=== PATIENT | female | born 1970 | race Two or more races ===

== ENCOUNTER 2016-10-03 13:41 | Emergency (ER) | payer MEDICAID ==
[~2016-10-03] VITALS: Ht 165.1 cm; Wt 63.5 kg
[2016-10-03] MEDS ORDERED: NKM (13:57)
[2016-10-03 14:04] VITALS: BP 158/82
--- NOTE | 2016-10-03 14:13 | Emergency Room Report ---
History of Present Illness General Chief Complaint: Chest Pain Source: Patient Present Illness HPI The patient presents with chest pain. Also has weakness with that. It began 3 hours prior to coming here. She never felt exactly this way, but when she's felt stress she's had some symptoms that are similar. She feels weakness throughout her body and some tingling in her hands. The pain is a pressure in her chest. It doesn't radiate. She denies any diaphoresis or vomiting. She has no risk factors for cardiac disease. She is accompanied by her . Pain rated at 8/10, substernal and pressure, not radiate. No fevers, cough, URI, rashes, headache, extremity pain, NVD, dysuria. The chest pain scared her and she is anxious. Allergies: Coded Allergies: No Known Allergies (Verified , 05/10/11) Patient History Past Medical History: see triage record Social History: Denies: alcohol use, smoking Social History Narrative with Last Menstrual Period: 2 weeks ago Now: No Reviewed Nursing Documentation: PMH: Agreed, PSxH: Agreed Nursing Documentation-PMH Past Medical History: No Stated History Review of Systems All Other Systems: negative except mentioned in HPI Physical Exam Vital Signs Date Time Temp Pulse Resp B/P Pulse Ox O2 Delivery O2 Flow Rate FiO2 10/03/16 13:54 98.4 108 40 158/82 100 Room Air Sp02 EP Interpretation: reviewed, normal General Appearance: well appearing, no apparent distress, GCS 15 Head: normocephalic Eyes: bilateral eye PERRL, bilateral eye normal inspection ENT: moist mucus membranes Neck: supple Respiratory: chest non-tender, lungs clear, normal breath sounds Cardiovascular #1: regular rate, rhythm Cardiovascular #2: 2+ radial (R) Gastrointestinal: normal inspection, normal bowel sounds, non tender, no mass, non-distended Musculoskeletal: back normal, gait/station normal, normal range of motion Neurologic: alert, oriented x3, grossly normal Psychiatric: anxious Skin: normal inspection, warm/dry, other - sl plethroric cheeks Medical Decision Making Diagnostic Impression: Primary Impression: Chest pain Qualified Codes: R07.89 - Other chest pain Additional Impression: Anxiety ER Course Patient presents with atypical chest pain without risk factors. Ddx: AMI, PE, ACS, GERD, anxiety, chest wall pain, viral syndrome amongst others. VS against PE. Urgent evaluation with labs, CXR and EKG. Treatment with pepcid, ativan and hydration. EKG normal. CXR no CP disease. Labs unremarkable. D dimer normal. Patient improved with treatment. Patient stable for outpatient observation and treatment. Laboratory Tests Test 10/03/16 14:00 10/03/16 15:00 White Blood Count 10.5 K/UL (4.8-10.8) Red Blood Count 5.09 M/UL (4.20-5.40) Hemoglobin 15.2 G/DL (12.0-16.0) Hematocrit 45.7 % (37.0-47.0) Mean Corpuscular Volume 90 FL (80-99) Mean Corpuscular Hemoglobin 29.9 PG (27.0-31.0) Mean Corpuscular Hemoglobin Concent 33.3 G/DL (32.0-36.0) Red Cell Distribution Width 12.3 % (11.6-14.8) Platelet Count 222 K/UL (150-450) Mean Platelet Volume 9.7 FL (6.5-10.1) Neutrophils (%) (Auto) % (45.0-75.0) Lymphocytes (%) (Auto) % (20.0-45.0) Monocytes (%) (Auto) % (1.0-10.0) Eosinophils (%) (Auto) % (0.0-3.0) Basophils (%) (Auto) % (0.0-2.0) Differential Total Cells Counted 100 Neutrophils % (Manual) 87 % (45-75) H Lymphocytes % (Manual) 9 % (20-45) L Monocytes % (Manual) 4 % (1-10) Eosinophils % (Manual) 0 % (0-3) Basophils % (Manual) 0 % (0-2) Band Neutrophils 0 % (0-8) Platelet Estimate Adequate Platelet Morphology Normal Red Blood Cell Morphology Normal Prothrombin Time 10.6 SEC (9.30-11.50) Prothrombin Time INR 1.0 (0.9-1.1) PTT 30 SEC (23-33) D-Dimer 143 ng/mL (<500) Sodium Level 140 mEQ/L (135-145) Potassium Level 4.0 mEQ/L (3.4-4.9) Chloride Level 97 mEQ/L (98-107) L Carbon Dioxide Level 20 mEQ/L (20-30) Anion Gap 23 (5-15) H Blood Urea Nitrogen 19 mg/dL (7-23) Creatinine 0.9 mg/dL (0.5-0.9) Estimate Glomerular Filtration Rate > 60 mL/min (>60) Glucose Level 170 mg/dL (74-106) H Calcium Level 10.0 mg/dL (8.6-10.2) Total Bilirubin 0.5 mg/dL (0.0-1.2) Aspartate Amino Transferase (AST) 20 U/L (5-40) Alanine Aminotransferase (ALT) 14 U/L (3-33) Alkaline Phosphatase 67 U/L (35-104) Total Creatine Kinase 89 U/L (26-140) Troponin I < 0.30 ng/mL (<=0.30) Pro-B-Type Natriuretic Peptide 214 pg/mL (0-125) H Total Protein 7.8 g/dL (6.6-8.7) Albumin 4.4 g/dL (3.5-5.2) Globulin 3.4 g/dL Albumin/Globulin Ratio 1.2 (1.0-2.7) Urine Color Pale yellow Urine Appearance Clear Urine pH 7 (4.5-8.0) Urine Specific [place] 1.005 (1.005-1.035) Urine Protein Negative (NEGATIVE) Urine Glucose (UA) Negative (NEGATIVE) Urine Ketones Negative (NEGATIVE) Urine Occult Blood Negative (NEGATIVE) Urine Nitrite Negative (NEGATIVE) Urine Bilirubin Negative (NEGATIVE) Urine Urobilinogen Normal MG/DL (0.0-1.0) Urine Leukocyte Esterase 1+ (NEGATIVE) H Urine RBC 0-2 /HPF (0 - 2) Urine WBC 2-4 /HPF (0 - 2) Urine Squamous Epithelial Cells Few /LPF (NONE/OCC) Urine Bacteria Few /HPF (NONE) Urine HCG, Qualitative Negative Urine Opiates Screen Negative (NEGATIVE) Urine Barbiturates Screen Negative (NEGATIVE) Phencyclidine (PCP) Screen Negative (NEGATIVE) Urine Amphetamines Screen Negative (NEGATIVE) Urine Benzodiazepines Screen Negative (NEGATIVE) Urine Cocaine Screen Negative (NEGATIVE) Urine Marijuana (THC) Screen Negative (NEGATIVE) EKG Diagnostic Results Rate: tachycardiac Rhythm: NSR ST Segments: no acute changes Rhythm Strip Diag. Results EP Interpretation: yes Rhythm: no PVC's, no ectopy, other - ST Chest X-Ray Diagnostic Results EP Interpretation: Yes Findings: no consolidation, no effusion, no pneumothorax, no acute cardiopulmonary disease Number of Views: 1 Last Vital Signs Date Time Temp Pulse Resp B/P Pulse Ox O2 Delivery O2 Flow Rate FiO2 10/03/16 18:34 97.9 81 14 135/71 99 Room Air Status: improved Disposition: HOME, SELF-CARE Condition: Improved Scripts Lorazepam* (ATIVAN*) 0.5 Mg Tablet 0.5 MG ORAL THREE TIMES A DAY, #6 TAB Prov: Noble Jacob M.D. 10/03/16 Famotidine (PEPCID) 20 Mg Tablet 20 MG ORAL DAILY, #30 TAB 0 Refills Prov: Noble Jacob M.D. 10/03/16 Referrals: NOT CHOSEN ANA MARIA/,REFERRING (PCP) Noble Jacob M.D. Oct 03, 2016 14:13
[2016-10-03] MEDS ORDERED: Aspirin Baby 81mg ORAL ONE (14:15)
[2016-10-03] MEDS ORDERED: Famotidine 20 MG/ 2ML VIAL IVP ONE (14:15)
[2016-10-03] MEDS ORDERED: LORazepam Inj 2mg/ml 1ml IV ONE (14:15)
[2016-10-03 14:27] LABS: MEAN CORPUSCULAR HEMOGLOBIN 29.9 PG (27.0-31.0); MEAN CORPUSCULAR HGB CONC 33.3 G/DL (32.0-36.0); MEAN CORPUSCULAR VOLUME 90 FL (80-99); MEAN PLATELET VOLUME 9.7 FL (6.5-10.1); PLATELET COUNT 222 K/UL (150-450); RED BLOOD COUNT 5.09 M/UL (4.20-5.40); RED CELL DISTRIBUTION WIDTH 12.3 % (11.6-14.8); WHITE BLOOD COUNT 10.5 K/UL (4.8-10.8)
[2016-10-03 14:50] LABS: TROPONIN I < 0.30 ng/mL (<=0.30)
[2016-10-03 14:51] VITALS: BP 168/146
[2016-10-03 15:00] LABS: ALANINE AMINOTRANSFERASE 14 U/L (3-33); ALBUMIN/GLOBULIN RATIO 1.2 (1.0-2.7); ANION GAP 23 (5-15); ASPARTATE AMINO TRANSFERASE 20 U/L (5-40); CARBON DIOXIDE 20 mEQ/L (20-30); CHLORIDE 97 mEQ/L (98-107); CREATININE 0.9 mg/dL (0.5-0.9); GLOMERULAR FILTRATION RATE > 60 mL/min (>60); HEMOLYSIS 64; SODIUM 140 mEQ/L (135-145); TOTAL PROTEIN 7.8 g/dL (6.6-8.7)
[2016-10-03 15:01] LABS: PROTHROMBIN TIME 10.6 SEC (9.30-11.50)
[2016-10-03 15:07] LABS: BAND NEUTROPHILS % (MANUAL) 0 % (0-8); BASOPHILS % (MANUAL) 0 % (0-2); EOSINOPHILS % (MANUAL) 0 % (0-3); LYMPHOCYTES % (MANUAL) 9 % (20-45); NEUTROPHILS % (MANUAL) 87 % (45-75); PLATELET ESTIMATE ADEQUATE; PLATELET MORPHOLOGY NORMAL; TOTAL CELLS COUNTED 100
[2016-10-03 15:25] LABS: APPEARANCE,URINE CLEAR; KETONES,URINE NEGATIVE (NEGATIVE); LEUKOCYTE ESTERASE ,URINE 1+ (NEGATIVE); NITRITE,URINE NEGATIVE (NEGATIVE); PH,URINE 7 (4.5-8.0); PROTEIN,URINE NEGATIVE (NEGATIVE); UROBILINOGEN,URINE NORMAL MG/DL (0.0-1.0)
--- NOTE | 2016-10-03 15:27 | Diagnostic Imaging Report ---
Indication: Chest Pain Comparison: 05/11/11 A single view chest radiograph was obtained. Findings: Cardiomediastinal appearance is within normal limits for age. Pulmonary vascularity is appropriate. The diaphragmatic contour is smooth and costophrenic angles are sharp. No pleural effusions are identified. The bones are unremarkable. Impression: No acute findings
[2016-10-03 15:36] LABS: BACTERIA,URINE FEW /HPF; RBC,URINE 0-2 /HPF (0 - 2); SQUAMOUS EPITHELIAL CELL,UR FEW /LPF (NONE/OCC)
[2016-10-03 16:12] VITALS: BP 151/67
[2016-10-03] MEDS ORDERED: ATIVAN0.5 MG ORAL (17:16)
[2016-10-03] MEDS ORDERED: PEPCID20 MG ORAL (17:16)
[2016-10-03 18:30] VITALS: BP 135/71
[2016-10-03 18:34] VITALS: BP 135/71
--- NOTE | 2016-10-06 15:07 | Cardiology Report ---
APPROVED REPORT EKG Measurement Heart [id number] Sinus tachycardia Biatrial enlargement Abnormal ECG
== END 2016-10-03 18:34 | disposition home or self-care (01) ==
LOC: EMR 14:04
DX: R07.9 Chest pain, unspecified (principal)
CPT/HCPCS: 36415; 71010; 80053; 80300; 81003; 81025; 82550; 83880; 84484; 85007; 85025; 85379; 85610; 85730; 93005; 96360; 96374; 96375; 99284; S0028

== ENCOUNTER 2018-04-18 15:57 | Inpatient (IN) | payer MEDICAID ==
[~2018-04-18] VITALS: Ht 149.9 cm; Wt 58.8 kg
[~2018-04-18 15:57] MED LIST: ATIVAN0.5 MG ORAL; NKM; PEPCID20 MG ORAL
[2018-04-18] MEDS ORDERED: Acetaminophen 500mg (ES) tab ORAL ONE (16:30)
[2018-04-18 16:33] VITALS: BP 149/41
[2018-04-18 17:04] LABS: APPEARANCE,URINE CLEAR; BILIRUBIN, URINE NEGATIVE (NEGATIVE); COLOR,URINE PALE YELLOW; GLUCOSE, URINE (UA) NEGATIVE (NEGATIVE); KETONES,URINE NEGATIVE (NEGATIVE); LEUKOCYTE ESTERASE ,URINE 1+ (NEGATIVE); NITRITE,URINE NEGATIVE (NEGATIVE); PH,URINE 7 (4.5-8.0); PROTEIN,URINE 2+ (NEGATIVE); UROBILINOGEN,URINE NORMAL MG/DL (0.0-1.0)
[2018-04-18 17:08] LABS: HEMATOCRIT 39.6 % (37.0-47.0); HEMOGLOBIN 13.4 G/DL (12.0-16.0); MEAN CORPUSCULAR VOLUME 88 FL (80-99); PLATELET COUNT 270 K/UL (150-450); WHITE BLOOD COUNT 18.8 K/UL (4.8-10.8)
[2018-04-18 17:09] LABS: ANION GAP 10 mmol/L (5-15); BLOOD UREA NITROGEN 11 mg/dL (7-18); CALCIUM 8.8 MG/DL (8.5-10.1); CARBON DIOXIDE 26 MMOL/L (21-32); CHLORIDE 98 MMOL/L (98-107); CREATININE 1.2 MG/DL (0.55-1.30); POTASSIUM 3.6 MMOL/L (3.5-5.1); SODIUM 134 MMOL/L (136-145)
--- NOTE | 2018-04-18 17:13 | Emergency Room Report ---
History of Present Illness General Chief Complaint: Abdominal Pain Source: Patient Present Illness HPI 47-year-old female presents ED for evaluation of fever, flank pain. Started approximately one week ago. Was seen at a clinic while visiting in [place] and was prescribed antibiotics. States she is on day 3 of Cipro. States there is no change. Notes some dysuria at that time but denies any at this time. Pain is sharp, 8 out of 10, localized to right upper quadrant, radiating to the right back. Febrile in triage. Denies nausea or vomiting. Denies chest pain or shortness of breath. Denies cough. No other aggravating relieving factors. Denies any other associated symptoms Allergies: Coded Allergies: No Known Allergies (Verified , 05/10/11) Patient History Past Medical History: none Past Surgical History: none Pertinent Family History: none Social History: Denies: smoking, alcohol use, drug use Last Menstrual Period: now Now: No Immunizations: UTD Reviewed Nursing Documentation: PMH: Agreed; PSxH: Agreed Nursing Documentation-PMH Past Medical History: No Stated History Review of Systems All Other Systems: negative except mentioned in HPI Physical Exam Vital Signs Date Time Temp Pulse Resp B/P (MAP) Pulse Ox O2 Delivery O2 Flow Rate FiO2 04/18/18 16:09 102.0 134 20 138/76 96 Room Air 102.0 Sp02 EP Interpretation: reviewed, normal General Appearance: no apparent distress, alert, GCS 15, non-toxic Head: normocephalic, atraumatic Eyes: bilateral eye normal inspection, bilateral eye PERRL ENT: hearing grossly normal, normal pharynx, no angioedema, normal voice Neck: full range of motion, supple/symm/no masses Respiratory: chest non-tender, lungs clear, normal breath sounds, speaking full sentences Cardiovascular #1: no edema, tachycardia Cardiovascular #2: 2+ carotid (R), 2+ carotid (L), 2+ radial (R), 2+ radial (L) , 2+ dorsalis pedis (R), 2+ dorsalis pedis (L) Gastrointestinal: normal bowel sounds, soft, non-distended, no guarding, no rebound, tenderness - RUQ Rectal: deferred Genitourinary: normal inspection, CVA tenderness (R) Musculoskeletal: back normal, gait/station normal, normal range of motion, non- tender Neurologic: alert, oriented x3, responsive, motor strength/tone normal, sensory intact, speech normal Psychiatric: judgement/insight normal, memory normal, mood/affect normal, no suicidal/homicidal ideation Reflexes: 3+ bicep (R), 3+ bicep (L), 3+ tricep (R), 3+ tricep (L), 3+ knee (R) , 3+ knee (L) Skin: normal color, no rash, warm/dry, well hydrated Lymphatic: no adenopathy Medical Decision Making Diagnostic Impression: Primary Impression: Pyelonephritis Additional Impression: Fever Qualified Codes: R50.9 - Fever, unspecified ER Course Hospital Course 47-year-old female presents to ED with right flank pain, fever. Currently being treated with antibiotics for UTI Differential diagnoses include: UTI, cystitis, pyelonephritis Clinical course Patient placed on stretcher. After initial history and physical I ordered UA, labs, IV fluids, tylenol labs - marked leukocytosis noted, hb/hematocrit stable, electrolytes okay, UA no gross bacteria (currently on abx) Patient continues to have fever. Given Toradol. Tachycardia improving with IV hydration. CT abdomen/pelvis shows no signs of acute process. findings consistent with pyelonephritis. Given that patient has failed outpatient therapy I believe patient should be admitted. Given broad-spectrum antibiotics here. Urine culture ordered Case discussed with Dr. Villarreal/ Sh[facility] and he agreed to accept the patient to his service for further care and support Diagnosis - pyelonephritis, fever Admitted to floor in serious condition Labs Test 04/18/18 16:12 04/18/18 16:20 Urine Color Pale yellow Urine Appearance Clear Urine pH 7 (4.5-8.0) Urine Specific [place] 1.005 (1.005-1.035) Urine Protein 2+ (NEGATIVE) Urine Glucose (UA) Negative (NEGATIVE) Urine Ketones Negative (NEGATIVE) Urine Blood 2+ (NEGATIVE) Urine Nitrite Negative (NEGATIVE) Urine Bilirubin Negative (NEGATIVE) Urine Urobilinogen Normal MG/DL (0.0-1.0) Urine Leukocyte Esterase 1+ (NEGATIVE) Urine RBC 0-2 /HPF (0 - 2) Urine WBC 0-2 /HPF (0 - 2) Urine Squamous Epithelial Cells Occasional /LPF Urine Bacteria None /HPF (NONE) Urine HCG, Qualitative Negative (NEGATIVE) White Blood Count 18.8 K/UL (4.8-10.8) Red Blood Count 4.50 M/UL (4.20-5.40) Hemoglobin 13.4 G/DL (12.0-16.0) Hematocrit 39.6 % (37.0-47.0) Mean Corpuscular Volume 88 FL (80-99) Mean Corpuscular Hemoglobin 29.7 PG (27.0-31.0) Mean Corpuscular Hemoglobin Concent 33.8 G/DL (32.0-36.0) Red Cell Distribution Width 12.0 % (11.6-14.8) Platelet Count 270 K/UL (150-450) Mean Platelet Volume 7.9 FL (6.5-10.1) Neutrophils (%) (Auto) % (45.0-75.0) Lymphocytes (%) (Auto) % (20.0-45.0) Monocytes (%) (Auto) % (1.0-10.0) Eosinophils (%) (Auto) % (0.0-3.0) Basophils (%) (Auto) % (0.0-2.0) Differential Total Cells Counted 100 Neutrophils % (Manual) 77 % (45-75) Lymphocytes % (Manual) 10 % (20-45) Monocytes % (Manual) 11 % (1-10) Eosinophils % (Manual) 0 % (0-3) Basophils % (Manual) 0 % (0-2) Band Neutrophils 2 % (0-8) Platelet Estimate Adequate Platelet Morphology Normal Red Blood Cell Morphology Normal Sodium Level 134 MMOL/L (136-145) Potassium Level 3.6 MMOL/L (3.5-5.1) Chloride Level 98 MMOL/L (98-107) Carbon Dioxide Level 26 MMOL/L (21-32) Anion Gap 10 mmol/L (5-15) Blood Urea Nitrogen 11 mg/dL (7-18) Creatinine 1.2 MG/DL (0.55-1.30) Estimat Glomerular Filtration Rate 48.2 mL/min (>60) Glucose Level 98 MG/DL (74-106) Lactic Acid Level 1.20 mmol/L (0.4-2.0) Calcium Level 8.8 MG/DL (8.5-10.1) Total Bilirubin 0.7 MG/DL (0.2-1.0) Aspartate Amino Transf (AST/SGOT) 40 U/L (15-37) Alanine Aminotransferase (ALT/SGPT) 35 U/L (12-78) Alkaline Phosphatase 111 U/L (46-116) Total Protein 7.9 G/DL (6.4-8.2) Albumin 2.6 G/DL (3.4-5.0) Globulin 5.3 g/dL Albumin/Globulin Ratio 0.5 (1.0-2.7) CT/MRI/US Diagnostic Results CT/MRI/US Diagnostic Results : Imaging Test Ordered: CT A/P Impression no acute process Last Vital Signs Date Time Temp Pulse Resp B/P (MAP) Pulse Ox O2 Delivery O2 Flow Rate FiO2 04/18/18 16:38 103.0 04/18/18 16:33 124 17 149/41 100 Room Air Status: improved Disposition: ADMITTED INPATIENT Condition: Serious Referrals: NON PHYSICIAN (PCP) Modesto Adams MD Apr 18, 2018 17:13
[2018-04-18 17:14] LABS: ALANINE AMINOTRANSFERASE 35 U/L (12-78); ALBUMIN 2.6 G/DL (3.4-5.0); ALBUMIN/GLOBULIN RATIO 0.5 (1.0-2.7); ALKALINE PHOSPHATASE 111 U/L (46-116); ASPARTATE AMINO TRANSFERASE 40 U/L (15-37); BILIRUBIN,TOTAL 0.7 MG/DL (0.2-1.0)
[2018-04-18] MEDS ORDERED: Isovue-300 100ml vial INJ PRN (17:15)
[2018-04-18] MEDS ORDERED: CIPRO500 MG PO (17:35)
[2018-04-18 17:42] VITALS: BP 118/56
[2018-04-18] MEDS ORDERED: Ketorolac 30mg Inj IV ONE (18:00)
--- NOTE | 2018-04-18 18:21 | Diagnostic Imaging Report ---
EXAM: XR Chest, 1 View CLINICAL HISTORY: COUGH TECHNIQUE: Frontal view of the chest. COMPARISON: Chest radiograph 10/13/16 FINDINGS: Lungs: Unremarkable. No consolidation. Pleural space: Unremarkable. No pneumothorax. Heart: Unremarkable. No cardiomegaly. Mediastinum: Unremarkable. Bones/joints: Unremarkable. IMPRESSION: 1. Normal chest. 2. If there is persistent concern, recommend formal frontal and lateral chest radiographs.
[2018-04-18 18:33] VITALS: BP 125/58
--- NOTE | 2018-04-18 18:40 | Diagnostic Imaging Report ---
EXAM: CT Abdomen and Pelvis With Intravenous Contrast CLINICAL HISTORY: FLANK TECHNIQUE: Axial computed tomography images of the abdomen and pelvis with intravenous contrast. CTDI is 15.62 mGy and DLP is 785 mGy-cm. One or more of the following dose reduction techniques were used: automated exposure control, adjustment of the mA and/or kV according to patient size, use of iterative reconstruction technique. Coronal and sagittal reformatted images were created and reviewed. COMPARISON: CT abdomen and pelvis 05/10/2011 FINDINGS: Lung bases: Unremarkable. No mass. No consolidation. ABDOMEN: Liver: Innumerable, intervally more prominent hepatic and bilateral renal cysts consistent with autosomal dominant polycystic kidney disease. Hepatic cysts up to 2.4 cm. Right renal cyst up to 4.4 cm is. Left renal cyst up to 5.3 cm. Gallbladder and bile ducts: Unremarkable. No calcified stones. No ductal dilation. Pancreas: Unremarkable. No mass. No ductal dilation. Spleen: Unremarkable. No splenomegaly. Adrenals: Unremarkable. No mass. Kidneys and ureters: See above. Stomach and bowel: Moderate colonic stool burden, which could be a cause for pain. No obstruction. No mucosal thickening. PELVIS: Appendix: No findings to suggest acute appendicitis. Bladder: Unremarkable. No mass. Reproductive: Probably benign nabothian cysts in the cervix. Correlate with pelvic ultrasound. ABDOMEN and PELVIS: Intraperitoneal space: Unremarkable. No free air. No significant fluid collection. Bones/joints: No acute fracture. No dislocation. Soft tissues: Unremarkable. Vasculature: Unremarkable. No abdominal aortic aneurysm. Lymph nodes: Smaller prominent left periaortic lymph node in the suprarenal region than on comparison study. Other findings: No acute abnormality to explain patient's symptoms. IMPRESSION: 1. No acute abnormality to explain patient's symptoms. 2. Moderate colonic stool burden, which could be a cause for pain. 3. Probably benign nabothian cysts in the cervix. Correlate with pelvic ultrasound. 4. Progressed findings of autosomal dominant polycystic kidney disease.
[2018-04-18] MEDS ORDERED: Piperacillin/Tazobactam 3.375 GM in NS 110 ML IVPB ONE (19:00)
[2018-04-18] MEDS ORDERED: Acetaminophen 650 MG SUPP RECTAL PRN (19:45)
[2018-04-18] MEDS ORDERED: LORazepam Inj 2mg/ml 1ml IV PRN (19:45)
[2018-04-18 20:30] VITALS: BP 131/50
[2018-04-18 20:40] VITALS: BP 132/74
--- NOTE | 2018-04-18 21:45 | History and Physical Report ---
DATE OF ADMISSION: 04/18/2018 REASON FOR ADMISSION: 1. Fever. 2. Flank pain. HISTORY OF PRESENT ILLNESS: The patient is a 47-year-old female who is being admitted to emergency room for further evaluation and care of flank pain and fever. She says that it started approximately 7 to 10 days ago. She has been having fevers as well. She was seen in the clinic while in [place], and was prescribed antibiotics. She says she is on day #3 of ciprofloxacin. However, there has been no change. She still feels that she has flank pain, 8/10 and having fevers. No chest pain. No shortness of breath. She is otherwise feeling well. She also notes that she has been told approximately 7 years ago that she had cysts in the liver and the kidney. She says she has 4 children, 3 daughters and 1 son. The 3 daughters have all been tested and were negative. She invited the son in during our conversation and noted that the 3 daughters had been tested and that the son had not, the son was at bedside and did understand the explanation of the cyst at that time. ALLERGIES: No known drug allergies. PAST MEDICAL HISTORY: 1. Polycystic kidney disease. 2. Polycystic liver disease. PAST SURGICAL HISTORY: None. FAMILY HISTORY: Polycystic kidney disease. SOCIAL HISTORY: No tobacco, alcohol, or illicit drug use. REVIEW OF SYSTEMS: NEUROLOGIC: The patient denies headache, change in vision, syncope or presyncopal episodes. CARDIOVASCULAR: No current chest pain, palpitations, or angina. PULMONARY: No difficulty breathing, productive cough, or sputum. GASTROINTESTINAL/GENITOURINARY: The patient having left flank pain with dysuria. MUSCULOSKELETAL: The patient is feeling tired and fatigued. ENDOCRINOLOGY: The patient was having fevers. PHYSICAL EXAMINATION: GENERAL: The patient is awake, alert, in no distress. VITAL SIGNS: Blood pressure 125/58, 99% oxygen saturation, pulse 102, temperature 98.9 degrees, and respiratory rate 20. HEENT: Extraocular muscles intact. No lymphadenopathy noted. Oropharyngeal mucosa clear and dry. CARDIOVASCULAR: S1 and S2. No rubs or gallops. PULMONARY: Clear to auscultation bilaterally. No rales, rhonchi or wheezes. ABDOMEN: Nondistended and nontender. EXTREMITY: No edema noted along with mild tenderness in the left and right upper flank. LABORATORY AND DIAGNOSTIC DATA: Labs dated 04/18/2018, white cell count 18.8, hemoglobin 13.4, platelet count 270. Sodium 134, potassium 3.6, BUN 11, and creatinine 1.2. Calcium 8.8. Albumin 2.6. ASSESSMENT AND PLAN: 1. Sepsis, most likely secondary to underlying urinary tract infection. At this time, IV antibiotics have been initiated. Infectious Disease has been consulted for further evaluation and management and care. CT of the abdomen and pelvis did not show anything other than polycystic liver and kidney disease. 2. Urinary tract infection/pyelo, leading possible to sepsis. Continue IV antibiotics with Infectious Disease to adjust as deemed appropriate. 3. Deep venous thrombosis prophylaxis with Lovenox. 4. Chronic kidney disease, 3A, with creatinine 1.2, most likely secondary to polycystic kidney disease. The patient will need followup as an outpatient. Pete Villarreal MD DR: HARINI JOB#: [id number] CC:
[2018-04-18] MEDS: Enoxaparin 40mg Inj SUBQ SCH (21:51)
--- NOTE | 2018-04-18 22:30 | Infectious Diseases Prog Note ---
Assessment/Plan Problems: (1) Pyelonephritis Assessment & Plan: will start cefepime pending urine culture (2) Sepsis Assessment & Plan: due to the above , continue cefepime pending blood culture (3) Bilateral flank pain Assessment & Plan: due to PCKD and possible pyelonephritis , continue antibiotics with pain management (4) Polycystic kidney disease, congenital Assessment & Plan: needs close follow up with nephrology (5) Fever Assessment & Plan: due to the above continue tylenol and antibiotics , monitor cultures Subjective Allergies: Coded Allergies: No Known Allergies (Verified , 05/10/11) Objective Vital Signs Last 24 Hour Vital Signs Date Time Temp Pulse Resp B/P (MAP) Pulse Ox O2 Delivery O2 Flow Rate FiO2 04/18/18 22:08 Room Air 04/18/18 20:40 97.9 93 18 132/74 (93) 98 97.9 04/18/18 20:35 98.1 88 16 131/50 100 Room Air 98.1 04/18/18 20:30 98.1 88 16 131/50 100 Room Air 98.1 04/18/18 18:33 98.9 102 20 125/58 99 Room Air 98.9 04/18/18 18:20 101.0 04/18/18 17:42 101.0 115 18 118/56 98 Room Air 101.0 04/18/18 16:38 103.0 04/18/18 16:33 101.9 124 17 149/41 100 Room Air 101.9 04/18/18 16:09 102.0 134 20 138/76 96 Room Air 102.0 Height (Feet): 4 Height (Inches): 11.00 Weight (Pounds): 135 Laboratory Tests Test 04/18/18 16:12 04/18/18 16:20 Urine Color Pale yellow Urine Appearance Clear Urine pH 7 (4.5-8.0) Urine Specific [place] 1.005 (1.005-1.035) Urine Protein 2+ (NEGATIVE) H Urine Glucose (UA) Negative (NEGATIVE) Urine Ketones Negative (NEGATIVE) Urine Blood 2+ (NEGATIVE) H Urine Nitrite Negative (NEGATIVE) Urine Bilirubin Negative (NEGATIVE) Urine Urobilinogen Normal MG/DL (0.0-1.0) Urine Leukocyte Esterase 1+ (NEGATIVE) H Urine RBC 0-2 /HPF (0 - 2) Urine WBC 0-2 /HPF (0 - 2) Urine Squamous Epithelial Cells Occasional /LPF Urine Bacteria None /HPF (NONE) Urine HCG, Qualitative Negative (NEGATIVE) White Blood Count 18.8 K/UL (4.8-10.8) H Red Blood Count 4.50 M/UL (4.20-5.40) Hemoglobin 13.4 G/DL (12.0-16.0) Hematocrit 39.6 % (37.0-47.0) Mean Corpuscular Volume 88 FL (80-99) Mean Corpuscular Hemoglobin 29.7 PG (27.0-31.0) Mean Corpuscular Hemoglobin Concent 33.8 G/DL (32.0-36.0) Red Cell Distribution Width 12.0 % (11.6-14.8) Platelet Count 270 K/UL (150-450) Mean Platelet Volume 7.9 FL (6.5-10.1) Neutrophils (%) (Auto) % (45.0-75.0) Lymphocytes (%) (Auto) % (20.0-45.0) Monocytes (%) (Auto) % (1.0-10.0) Eosinophils (%) (Auto) % (0.0-3.0) Basophils (%) (Auto) % (0.0-2.0) Differential Total Cells Counted 100 Neutrophils % (Manual) 77 % (45-75) H Lymphocytes % (Manual) 10 % (20-45) L Monocytes % (Manual) 11 % (1-10) H Eosinophils % (Manual) 0 % (0-3) Basophils % (Manual) 0 % (0-2) Band Neutrophils 2 % (0-8) Platelet Estimate Adequate Platelet Morphology Normal Red Blood Cell Morphology Normal Sodium Level 134 MMOL/L (136-145) L Potassium Level 3.6 MMOL/L (3.5-5.1) Chloride Level 98 MMOL/L (98-107) Carbon Dioxide Level 26 MMOL/L (21-32) Anion Gap 10 mmol/L (5-15) Blood Urea Nitrogen 11 mg/dL (7-18) Creatinine 1.2 MG/DL (0.55-1.30) Estimat Glomerular Filtration Rate 48.2 mL/min (>60) Glucose Level 98 MG/DL (74-106) Lactic Acid Level 1.20 mmol/L (0.4-2.0) Calcium Level 8.8 MG/DL (8.5-10.1) Total Bilirubin 0.7 MG/DL (0.2-1.0) Aspartate Amino Transf (AST/SGOT) 40 U/L (15-37) H Alanine Aminotransferase (ALT/SGPT) 35 U/L (12-78) Alkaline Phosphatase 111 U/L (46-116) Total Protein 7.9 G/DL (6.4-8.2) Albumin 2.6 G/DL (3.4-5.0) L Globulin 5.3 g/dL Albumin/Globulin Ratio 0.5 (1.0-2.7) L Current Medications Medications (Trade) Dose Ordered Sig/Daniela Route PRN Reason Start Time Stop Time Status Last Admin Dose Admin Acetaminophen (Tylenol) 650 mg Q4H PRN RECTAL fever 04/18/18 19:45 05/18/18 19:44 Dextrose (Dextrose 50%) 25 ml Q1H PRN IV Hypoglycemia 04/18/18 19:45 Dextrose (Dextrose 50%) 50 ml Q1H PRN IV Hypoglycemia 04/18/18 19:45 Diphenhydramine HCl (Benadryl) 25 mg Q6H PRN ORAL Itching/Pruritis 04/18/18 19:45 05/18/18 19:44 Enoxaparin Sodium (Lovenox) 40 mg Q24H SUBQ 04/18/18 20:45 05/18/18 20:44 04/18/18 21:51 Famotidine (Pepcid) 40 mg DAILY ORAL 04/19/18 09:00 05/19/18 08:59 Iopamidol (Isovue-300 100ml) 100 ml NOW PRN INJ Radiology Procedure 04/18/18 17:15 Lorazepam (Ativan 2mg/ml 1ml) 1 mg Q8H PRN IV For Anxiety 04/18/18 19:45 04/25/18 19:44 Ondansetron HCl (Zofran) 4 mg Q6H PRN IVP Nausea & Vomiting 04/18/18 19:45 05/18/18 19:44 Sodium Chloride 1,000 ml @ 125 mls/hr Q8H IVLG 04/18/18 20:34 05/18/18 20:33 04/18/18 21:50 Kaleigh Pichardo M.D. Apr 18, 2018 22:30
[2018-04-19] VITALS: BP 118/71
[2018-04-19] MEDS: Cefepime HCl 2 GM in D5W 55 ML IVPB SCH ×2 (02:49→14:14)
[2018-04-19 04:00] VITALS: BP 132/76
[2018-04-19 08:09] VITALS: BP 130/69
[2018-04-19] MEDS: Acetaminophen 500mg (ES) tab ORAL PRN ×2 (08:54→17:24)
--- NOTE | 2018-04-19 08:58 | Nephrology Progress Note ---
Assessment/Plan Assessment/Plan A/P 1) Sepsis- pyleonep/UTI - IV Abx per ID - AM labs pending 2) ADPKD- son to be tested - polycystic liver as well - will need outpt follow up with GI and renal 3) SOB with cough- unclear etiology - STAT Trop I - Pulm consult 4) DVT Prophylaxsis with Lovenox Subjective Date patient seen: Apr 19, 2018 Time patient seen: 08:54 ROS Limited/Unobtainable: No Constitutional: Reports: weakness Respiratory: Reports: shortness of breath Allergies: Coded Allergies: No Known Allergies (Verified , 05/10/11) All Systems: reviewed and negative except above Subjective Patient c/o SOB with coughing Objective Last 24 Hour Vital Signs Date Time Temp Pulse Resp B/P (MAP) Pulse Ox O2 Delivery O2 Flow Rate FiO2 04/19/18 08:09 100.2 111 18 130/69 (89) 97 100.2 04/19/18 04:00 98.7 97 18 132/76 (94) 98 98.7 04/19/18 00:00 97.5 80 18 118/71 (87) 97 97.5 04/18/18 22:08 Room Air 04/18/18 21:00 Room Air 04/18/18 20:40 97.9 93 18 132/74 (93) 98 97.9 04/18/18 20:40 97.9 04/18/18 20:35 98.1 88 16 131/50 100 Room Air 98.1 04/18/18 20:30 98.1 88 16 131/50 100 Room Air 98.1 04/18/18 18:33 98.9 102 20 125/58 99 Room Air 98.9 04/18/18 18:20 101.0 04/18/18 17:42 101.0 115 18 118/56 98 Room Air 101.0 04/18/18 16:38 103.0 04/18/18 16:33 101.9 124 17 149/41 100 Room Air 101.9 04/18/18 16:09 102.0 134 20 138/76 96 Room Air 102.0 Intake and Output 04/18/18 04/19/18 19:00 07:00 Intake Total 1000 ml 1180 ml Balance 1000 ml 1180 ml Intake Oral 250 ml IV Total 1000 ml 930 ml # Voids 1 1 Laboratory Tests 04/18/18 16:12: Urine Color Pale yellow, Urine Appearance Clear, Urine pH 7, Urine Specific [place] 1.005, Urine Protein 2+H, Urine Glucose (UA) Negative, Urine Ketones Negative, Urine Blood 2+H, Urine Nitrite Negative, Urine Bilirubin Negative, Urine Urobilinogen Normal, Urine Leukocyte Esterase 1+H, Urine RBC 0-2, Urine WBC 0-2, Urine Squamous Epithelial Cells Occasional, Urine Bacteria None, Urine HCG, Qualitative Negative 04/18/18 16:20: White Blood Count 18.8H, Red Blood Count 4.50, Hemoglobin 13.4, Hematocrit 39.6 , Mean Corpuscular Volume 88, Mean Corpuscular Hemoglobin 29.7, Mean Corpuscular Hemoglobin Concent 33.8, Red Cell Distribution Width 12.0, Platelet Count 270, Mean Platelet Volume 7.9, Neutrophils (%) (Auto) , Lymphocytes (%) ( Auto) , Monocytes (%) (Auto) , Eosinophils (%) (Auto) , Basophils (%) (Auto) , Differential Total Cells Counted 100, Neutrophils % (Manual) 77H, Lymphocytes % (Manual) 10L, Monocytes % (Manual) 11H, Eosinophils % (Manual) 0, Basophils % ( Manual) 0, Band Neutrophils 2, Platelet Estimate Adequate, Platelet Morphology Normal, Red Blood Cell Morphology Normal, Sodium Level 134L, Potassium Level 3.6 , Chloride Level 98, Carbon Dioxide Level 26, Anion Gap 10, Blood Urea Nitrogen 11, Creatinine 1.2, Estimat Glomerular Filtration Rate 48.2, Glucose Level 98, Lactic Acid Level 1.20, Calcium Level 8.8, Total Bilirubin 0.7, Aspartate Amino Transf (AST/SGOT) 40H, Alanine Aminotransferase (ALT/SGPT) 35, Alkaline Phosphatase 111, Total Protein 7.9, Albumin 2.6L, Globulin 5.3, Albumin/ Globulin Ratio 0.5L 04/19/18 00:00: Urine Opiates Screen Negative, Urine Barbiturates Screen Negative, Phencyclidine (PCP) Screen Negative, Urine Amphetamines Screen Negative, Urine Benzodiazepines Screen Negative, Urine Cocaine Screen Negative, Urine Marijuana (THC) Screen Negative Height (Feet): 4 Height (Inches): 11.00 Weight (Pounds): 135 General Appearance: WD/WN, no apparent distress EENT: PERRL/EOMI Neck: normal alignment, supple Cardiovascular: normal rate, regular rhythm Respiratory/Chest: lungs clear, normal breath sounds Abdomen: non tender, soft Edema: no edema noted Arm (L), no edema noted Arm (R), no edema noted Leg (L), no edema noted Leg (R), no edema noted Pedal (L), no edema noted Pedal (R), no edema noted Generalized Pete Villarreal MD Apr 19, 2018 08:58
--- NOTE | 2018-04-19 10:11 | Pulmonology Progress Note ---
Assessment/Plan Assessment/Plan sob cxr negative PLAN venous US D dimer chest Xray reviewed will monitor Subjective Allergies: Coded Allergies: No Known Allergies (Verified , 05/10/11) Subjective 47-year-old female admitted for flank pain and fever. she was noted to have shortness of breath and I was called to evaluate. ALLERGIES: No known drug allergies. PAST MEDICAL HISTORY: 1. Polycystic kidney disease. 2. Polycystic liver disease. PAST SURGICAL HISTORY: None. FAMILY HISTORY: Polycystic kidney disease. SOCIAL HISTORY: No tobacco, alcohol, or illicit drug use. Objective Last 24 Hour Vital Signs Date Time Temp Pulse Resp B/P (MAP) Pulse Ox O2 Delivery O2 Flow Rate FiO2 04/19/18 09:00 Room Air 04/19/18 08:54 100.2 04/19/18 08:09 100.2 111 18 130/69 (89) 97 100.2 04/19/18 04:00 98.7 97 18 132/76 (94) 98 98.7 04/19/18 00:00 97.5 80 18 118/71 (87) 97 97.5 04/18/18 22:08 Room Air 04/18/18 21:00 Room Air 04/18/18 20:40 97.9 93 18 132/74 (93) 98 97.9 04/18/18 20:40 97.9 04/18/18 20:35 98.1 88 16 131/50 100 Room Air 98.1 04/18/18 20:30 98.1 88 16 131/50 100 Room Air 98.1 04/18/18 18:33 98.9 102 20 125/58 99 Room Air 98.9 04/18/18 18:20 101.0 04/18/18 17:42 101.0 115 18 118/56 98 Room Air 101.0 04/18/18 16:38 103.0 04/18/18 16:33 101.9 124 17 149/41 100 Room Air 101.9 04/18/18 16:09 102.0 134 20 138/76 96 Room Air 102.0 Intake and Output 04/18/18 04/19/18 19:00 07:00 Intake Total 1000 ml 1180 ml Balance 1000 ml 1180 ml Intake Oral 250 ml IV Total 1000 ml 930 ml # Voids 1 1 Objective WDWN NAD clear breath sounds bilaterally without rhonchi or wheeze [id number] without MRG NABS nontender no HSM no CCE nonfocal Laboratory Tests 04/18/18 16:12: Urine Color Pale yellow, Urine Appearance Clear, Urine pH 7, Urine Specific [place] 1.005, Urine Protein 2+H, Urine Glucose (UA) Negative, Urine Ketones Negative, Urine Blood 2+H, Urine Nitrite Negative, Urine Bilirubin Negative, Urine Urobilinogen Normal, Urine Leukocyte Esterase 1+H, Urine RBC 0-2, Urine WBC 0-2, Urine Squamous Epithelial Cells Occasional, Urine Bacteria None, Urine HCG, Qualitative Negative 04/18/18 16:20: White Blood Count 18.8H, Red Blood Count 4.50, Hemoglobin 13.4, Hematocrit 39.6 , Mean Corpuscular Volume 88, Mean Corpuscular Hemoglobin 29.7, Mean Corpuscular Hemoglobin Concent 33.8, Red Cell Distribution Width 12.0, Platelet Count 270, Mean Platelet Volume 7.9, Neutrophils (%) (Auto) , Lymphocytes (%) ( Auto) , Monocytes (%) (Auto) , Eosinophils (%) (Auto) , Basophils (%) (Auto) , Differential Total Cells Counted 100, Neutrophils % (Manual) 77H, Lymphocytes % (Manual) 10L, Monocytes % (Manual) 11H, Eosinophils % (Manual) 0, Basophils % ( Manual) 0, Band Neutrophils 2, Platelet Estimate Adequate, Platelet Morphology Normal, Red Blood Cell Morphology Normal, Sodium Level 134L, Potassium Level 3.6 , Chloride Level 98, Carbon Dioxide Level 26, Anion Gap 10, Blood Urea Nitrogen 11, Creatinine 1.2, Estimat Glomerular Filtration Rate 48.2, Glucose Level 98, Lactic Acid Level 1.20, Calcium Level 8.8, Total Bilirubin 0.7, Aspartate Amino Transf (AST/SGOT) 40H, Alanine Aminotransferase (ALT/SGPT) 35, Alkaline Phosphatase 111, Total Protein 7.9, Albumin 2.6L, Globulin 5.3, Albumin/ Globulin Ratio 0.5L 04/19/18 00:00: Urine Opiates Screen Negative, Urine Barbiturates Screen Negative, Phencyclidine (PCP) Screen Negative, Urine Amphetamines Screen Negative, Urine Benzodiazepines Screen Negative, Urine Cocaine Screen Negative, Urine Marijuana (THC) Screen Negative 04/19/18 08:56: White Blood Count [Pending], Red Blood Count [Pending], Hemoglobin [Pending], Hematocrit [Pending], Mean Corpuscular Volume [Pending], Mean Corpuscular Hemoglobin [Pending], Mean Corpuscular Hemoglobin Concent [Pending], Red Cell Distribution Width [Pending], Platelet Count [Pending], Mean Platelet Volume [ Pending], Neutrophils (%) (Auto) [Pending], Lymphocytes (%) (Auto) [Pending], Monocytes (%) (Auto) [Pending], Eosinophils (%) (Auto) [Pending], Basophils (%) (Auto) [Pending] 04/19/18 09:25: Sodium Level [Pending], Potassium Level [Pending], Chloride Level [Pending], Carbon Dioxide Level [Pending], Blood Urea Nitrogen [Pending], Creatinine [ Pending], Estimat Glomerular Filtration Rate [Pending], Glucose Level [Pending] , Calcium Level [Pending], Troponin I [Pending] Current Medications Medications (Trade) Dose Ordered Sig/Daniela Route PRN Reason Start Time Stop Time Status Last Admin Dose Admin Acetaminophen (Tylenol) 500 mg Q4H PRN ORAL Mild Pain/Temp > 100.5 04/19/18 08:10 05/19/18 08:09 04/19/18 08:54 Cefepime HCl 2 gm/ Dextrose 55 ml @ 110 mls/hr Q12H IVPB 04/19/18 03:00 04/26/18 02:59 04/19/18 02:49 Dextrose (Dextrose 50%) 25 ml Q1H PRN IV Hypoglycemia 04/18/18 19:45 Dextrose (Dextrose 50%) 50 ml Q1H PRN IV Hypoglycemia 04/18/18 19:45 Diphenhydramine HCl (Benadryl) 25 mg Q6H PRN ORAL Itching/Pruritis 04/18/18 19:45 05/18/18 19:44 Enoxaparin Sodium (Lovenox) 40 mg Q24H SUBQ 04/18/18 20:45 05/18/18 20:44 04/18/18 21:51 Famotidine (Pepcid) 40 mg DAILY ORAL 04/19/18 09:00 05/19/18 08:59 04/19/18 08:53 Iopamidol (Isovue-300 100ml) 100 ml NOW PRN INJ Radiology Procedure 04/18/18 17:15 Lorazepam (Ativan 2mg/ml 1ml) 1 mg Q8H PRN IV For Anxiety 04/18/18 19:45 04/25/18 19:44 Ondansetron HCl (Zofran) 4 mg Q6H PRN IVP Nausea & Vomiting 04/18/18 19:45 05/18/18 19:44 Sodium Chloride 1,000 ml @ 125 mls/hr Q8H IVLG 04/18/18 20:34 05/18/18 20:33 04/19/18 04:45 Leroy Morales MD Apr 19, 2018 10:11
[2018-04-19 10:12] LABS: ANION GAP 10 mmol/L (5-15); BLOOD UREA NITROGEN 13 mg/dL (7-18); CALCIUM 7.6 MG/DL (8.5-10.1); CARBON DIOXIDE 23 MMOL/L (21-32); CHLORIDE 105 MMOL/L (98-107); POTASSIUM 3.5 MMOL/L (3.5-5.1); SODIUM 137 MMOL/L (136-145)
[2018-04-19 10:24] LABS: BASOPHILS % (AUTO) 0.7 % (0.0-2.0); EOSINOPHILS % (AUTO) 0.6 % (0.0-3.0); HEMATOCRIT 34.8 % (37.0-47.0); HEMOGLOBIN 11.6 G/DL (12.0-16.0); LYMPHOCYTES % (AUTO) 8.3 % (20.0-45.0); MEAN CORPUSCULAR VOLUME 89 FL (80-99); MONOCYTES % (AUTO) 10.2 % (1.0-10.0); NEUTROPHILS % (AUTO) 80.3 % (45.0-75.0); PLATELET COUNT 217 K/UL (150-450); RED BLOOD COUNT 3.93 M/UL (4.20-5.40); RED CELL DISTRIBUTION WIDTH 12.4 % (11.6-14.8); WHITE BLOOD COUNT 15.3 K/UL (4.8-10.8)
[2018-04-19 12:00] VITALS: BP 141/88
--- NOTE | 2018-04-19 13:42 | Infectious Diseases Prog Note ---
Assessment/Plan Problems: (1) Pyelonephritis Assessment & Plan: complicated with sepsis , continue cefepime pending urine culture (2) Sepsis Assessment & Plan: due to the above , continue cefepime pending blood culture (3) Bilateral flank pain Assessment & Plan: due to PCKD and pyelonephritis , continue antibiotics with pain management (4) Polycystic kidney disease, congenital Assessment & Plan: needs close follow up with nephrology (5) Fever Assessment & Plan: due to the above continue tylenol and antibiotics , monitor cultures (6) Polycystic liver disease, congenital Assessment & Plan: follow up with GI Subjective Constitutional: Reports: no symptoms HEENT: Reports: no symptoms Respiratory: Reports: no symptoms Breasts: Reports: no symptoms Cardiovascular: Reports: no symptoms Gastrointestinal/Abdominal: Reports: constipation, other - pain Genitourinary: Reports: dysuria, frequency Neurologic: Reports: no symptoms Psychiatric: Reports: no symptoms Skin: Reports: no symptoms Endocrine: Reports: no symptoms Hematologic: Reports: no symptoms Musculoskeletal: Reports: no symptoms Allergies: Coded Allergies: No Known Allergies (Verified , 05/10/11) Objective Vital Signs Last 24 Hour Vital Signs Date Time Temp Pulse Resp B/P (MAP) Pulse Ox O2 Delivery O2 Flow Rate FiO2 04/19/18 12:00 98.0 86 18 141/88 (105) 97 98.0 04/19/18 09:24 98.4 04/19/18 09:00 Room Air 04/19/18 08:54 100.2 04/19/18 08:09 100.2 111 18 130/69 (89) 97 100.2 04/19/18 04:00 98.7 97 18 132/76 (94) 98 98.7 04/19/18 00:00 97.5 80 18 118/71 (87) 97 97.5 04/18/18 22:08 Room Air 04/18/18 21:00 Room Air 04/18/18 20:40 97.9 93 18 132/74 (93) 98 97.9 04/18/18 20:40 97.9 04/18/18 20:35 98.1 88 16 131/50 100 Room Air 98.1 04/18/18 20:30 98.1 88 16 131/50 100 Room Air 98.1 04/18/18 18:33 98.9 102 20 125/58 99 Room Air 98.9 04/18/18 18:20 101.0 04/18/18 17:42 101.0 115 18 118/56 98 Room Air 101.0 04/18/18 16:38 103.0 04/18/18 16:33 101.9 124 17 149/41 100 Room Air 101.9 04/18/18 16:09 102.0 134 20 138/76 96 Room Air 102.0 Height (Feet): 4 Height (Inches): 11.00 Weight (Pounds): 135 General Appearance: WD/WN, no acute distress HEENT: normocephalic, atraumatic, anicteric, mucous membranes moist, PERRL, EOMI, pharynx normal, supple, no JVD Respiratory/Chest: chest wall non-tender, lungs clear, normal breath sounds, no respiratory distress, no accessory muscle use Cardiovascular: normal peripheral pulses, normal rate, regular rhythm, no gallop/murmur, no JVD Abdomen: normal bowel sounds, non distended, no mass, no scars, distended, tender, mass Extremities: no cyanosis, no clubbing Skin: no rash, no lesions, no ulcers Neurologic/Psychiatric: alert, oriented x 3, responsive Lymphatic: no neck adenopathy, no groin adenopathy Musculoskeletal: normal muscle bulk, no effusion Laboratory Tests Test 04/18/18 16:12 04/18/18 16:20 04/19/18 00:00 04/19/18 09:25 Urine Color Pale yellow Urine Appearance Clear Urine pH 7 (4.5-8.0) Urine Specific [place] 1.005 (1.005-1.035) Urine Protein 2+ (NEGATIVE) H Urine Glucose (UA) Negative (NEGATIVE) Urine Ketones Negative (NEGATIVE) Urine Blood 2+ (NEGATIVE) H Urine Nitrite Negative (NEGATIVE) Urine Bilirubin Negative (NEGATIVE) Urine Urobilinogen Normal MG/DL (0.0-1.0) Urine Leukocyte Esterase 1+ (NEGATIVE) H Urine RBC 0-2 /HPF (0 - 2) Urine WBC 0-2 /HPF (0 - 2) Urine Squamous Epithelial Cells Occasional /LPF Urine Bacteria None /HPF (NONE) Urine HCG, Qualitative Negative (NEGATIVE) White Blood Count 18.8 K/UL (4.8-10.8) H 15.3 K/UL (4.8-10.8) H Red Blood Count 4.50 M/UL (4.20-5.40) 3.93 M/UL (4.20-5.40) L Hemoglobin 13.4 G/DL (12.0-16.0) 11.6 G/DL (12.0-16.0) L Hematocrit 39.6 % (37.0-47.0) 34.8 % (37.0-47.0) L Mean Corpuscular Volume 88 FL (80-99) 89 FL (80-99) Mean Corpuscular Hemoglobin 29.7 PG (27.0-31.0) 29.4 PG (27.0-31.0) Mean Corpuscular Hemoglobin Concent 33.8 G/DL (32.0-36.0) 33.2 G/DL (32.0-36.0) Red Cell Distribution Width 12.0 % (11.6-14.8) 12.4 % (11.6-14.8) Platelet Count 270 K/UL (150-450) 217 K/UL (150-450) Mean Platelet Volume 7.9 FL (6.5-10.1) 7.7 FL (6.5-10.1) Neutrophils (%) (Auto) % (45.0-75.0) 80.3 % (45.0-75.0) H Lymphocytes (%) (Auto) % (20.0-45.0) 8.3 % (20.0-45.0) L Monocytes (%) (Auto) % (1.0-10.0) 10.2 % (1.0-10.0) H Eosinophils (%) (Auto) % (0.0-3.0) 0.6 % (0.0-3.0) Basophils (%) (Auto) % (0.0-2.0) 0.7 % (0.0-2.0) Differential Total Cells Counted 100 Neutrophils % (Manual) 77 % (45-75) H Lymphocytes % (Manual) 10 % (20-45) L Monocytes % (Manual) 11 % (1-10) H Eosinophils % (Manual) 0 % (0-3) Basophils % (Manual) 0 % (0-2) Band Neutrophils 2 % (0-8) Platelet Estimate Adequate Platelet Morphology Normal Red Blood Cell Morphology Normal Sodium Level 134 MMOL/L (136-145) L 137 MMOL/L (136-145) Potassium Level 3.6 MMOL/L (3.5-5.1) 3.5 MMOL/L (3.5-5.1) Chloride Level 98 MMOL/L (98-107) 105 MMOL/L (98-107) Carbon Dioxide Level 26 MMOL/L (21-32) 23 MMOL/L (21-32) Anion Gap 10 mmol/L (5-15) 10 mmol/L (5-15) Blood Urea Nitrogen 11 mg/dL (7-18) 13 mg/dL (7-18) Creatinine 1.2 MG/DL (0.55-1.30) 1.0 MG/DL (0.55-1.30) Estimat Glomerular Filtration Rate 48.2 mL/min (>60) 59.4 mL/min (>60) Glucose Level 98 MG/DL (74-106) 157 MG/DL (74-106) H Lactic Acid Level 1.20 mmol/L (0.4-2.0) Calcium Level 8.8 MG/DL (8.5-10.1) 7.6 MG/DL (8.5-10.1) L Total Bilirubin 0.7 MG/DL (0.2-1.0) Aspartate Amino Transf (AST/SGOT) 40 U/L (15-37) H Alanine Aminotransferase (ALT/SGPT) 35 U/L (12-78) Alkaline Phosphatase 111 U/L (46-116) Total Protein 7.9 G/DL (6.4-8.2) Albumin 2.6 G/DL (3.4-5.0) L Globulin 5.3 g/dL Albumin/Globulin Ratio 0.5 (1.0-2.7) L Urine Opiates Screen Negative (NEGATIVE) Urine Barbiturates Screen Negative (NEGATIVE) Phencyclidine (PCP) Screen Negative (NEGATIVE) Urine Amphetamines Screen Negative (NEGATIVE) Urine Benzodiazepines Screen Negative (NEGATIVE) Urine Cocaine Screen Negative (NEGATIVE) Urine Marijuana (THC) Screen Negative (NEGATIVE) Troponin I 0.000 ng/mL (0.000-0.056) Current Medications Medications (Trade) Dose Ordered Sig/Daniela Route PRN Reason Start Time Stop Time Status Last Admin Dose Admin Acetaminophen (Tylenol) 500 mg Q4H PRN ORAL Mild Pain/Temp > 100.5 04/19/18 08:10 05/19/18 08:09 04/19/18 08:54 Cefepime HCl 2 gm/ Dextrose 55 ml @ 110 mls/hr Q12H IVPB 04/19/18 03:00 04/26/18 02:59 04/19/18 02:49 Dextrose (Dextrose 50%) 25 ml Q1H PRN IV Hypoglycemia 04/18/18 19:45 Dextrose (Dextrose 50%) 50 ml Q1H PRN IV Hypoglycemia 04/18/18 19:45 Diphenhydramine HCl (Benadryl) 25 mg Q6H PRN ORAL Itching/Pruritis 04/18/18 19:45 05/18/18 19:44 Enoxaparin Sodium (Lovenox) 40 mg Q24H SUBQ 04/18/18 20:45 05/18/18 20:44 04/18/18 21:51 Famotidine (Pepcid) 40 mg DAILY ORAL 04/19/18 09:00 05/19/18 08:59 04/19/18 08:53 Iopamidol (Isovue-300 100ml) 100 ml NOW PRN INJ Radiology Procedure 04/18/18 17:15 Lorazepam (Ativan 2mg/ml 1ml) 1 mg Q8H PRN IV For Anxiety 04/18/18 19:45 04/25/18 19:44 Ondansetron HCl (Zofran) 4 mg Q6H PRN IVP Nausea & Vomiting 04/18/18 19:45 05/18/18 19:44 Sodium Chloride 1,000 ml @ 125 mls/hr Q8H IVLG 04/18/18 20:34 05/18/18 20:33 04/19/18 12:25 Kaleigh Pichardo M.D. Apr 19, 2018 13:42
[2018-04-19 15:50] VITALS: BP 156/68
--- NOTE | 2018-04-19 16:30 | Consultation ---
DATE OF CONSULTATION: 04/19/2018 INFECTIOUS DISEASES CONSULTATION CONSULTING PHYSICIAN: Kaleigh Pichardo M.D. REQUESTING PHYSICIAN: Pete Villarreal M.D. REASON FOR CONSULTATION: Pyelonephritis and polycystic kidney disease. Recommendation for antibiotics treatment. HISTORY OF PRESENT ILLNESS: The patient is a 47-year-old female with no significant past medical history presented to the emergency department for evaluation of fever and flank pain which started couple of weeks ago. The patient's pain has been there for couple of months. She noticed it after she is done with urination sometimes. The patient denied any hematuria or kidney stones in the past. She was recently seen in a clinic in [place] and she was given ciprofloxacin which she took for three days almost with no significant improvement. The patient also reports urgency with frequency at some point. Her pain is localized in the flanks area and radiated to the front at some point 8/10. No relation with bowel movement or eating. The patient was found to have fever in the emergency room. Her urinalysis was suggestive of infection. The patient was tachycardic with pulse of 134 concerning for sepsis so she was admitted to the hospital and started on antibiotics treatment and Infectious Diseases consultation was requested for antibiotics treatment and further management. PAST MEDICAL HISTORY: Significant for polycystic kidney disease and UTI. PAST SURGICAL HISTORY: Negative. ALLERGIES: No known drug allergy. MEDICATIONS: The patient was given Zosyn in the emergency room. For the rest of her medications, please refer to [facility]. FAMILY HISTORY: Positive for polycystic kidney disease in siblings. SOCIAL HISTORY: The patient lives at home with family. Denied using any drugs, tobacco, or alcohol. She is currently unemployed. PHYSICAL EXAMINATION: VITAL SIGNS: Temperature 101, pulse 115, respiration 18, blood pressure 118/56, saturation 98% on room air. GENERAL: Middle-aged female, obese, lying in bed, awake, alert, comfortable, not in acute distress. HEENT: Normocephalic and atraumatic. Pupils are reactive to light. Moist oral mucosa. No exudate. NECK: Supple. No lymphadenopathy. CARDIOVASCULAR: Regular rate and rhythm. No murmur or gallop. LUNGS: Clear bilaterally. No wheezing or rhonchi. Normal breathing effort. ABDOMEN: Soft. Tender in the sides mainly at the flanks area with large kidneys on both sides. No rebound. No ascites. EXTREMITIES: No edema. No cyanosis. SKIN: No rash. No hives. No ulceration. LABORATORY DATA: Labs showed white count of 18.8, hemoglobin of 13.4, platelet count of 270. BUN of 11 and creatinine of 1.2. AST of 40. Urinalysis showed +1 leukocyte esterase, WBCs 0 to 2, no bacteria. Toxicology screening negative. IMAGING: Abdominal and pelvis CT scan with contrast showed no acute abnormalities. 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 Chest x-ray showed normal chest. ASSESSMENT AND RECOMMENDATION: 1. Acute pyelonephritis complicated with sepsis. We will start the patient on cefepime, empiric coverage. Pending urine culture results. We will monitor blood culture, to continue hydration and pain management as needed. 2. Sepsis due to the above. Continue cefepime empiric coverage for now, pending blood culture. 3. Polycystic kidney disease, congenital. The patient will need close follow up with Nephrology, to monitor renal function tests, encourage hydration. 4. Fever due to the above. Continue antibiotics and Tylenol as needed. Monitor culture. Thank you for the consult. Infectious Diseases will continue to follow. Kaleigh Pichardo M.D. DR: Trevor JOB#: [id number] CC:
[2018-04-19 20:00] VITALS: BP 137/59
[2018-04-19] MEDS: Enoxaparin 40mg Inj SUBQ SCH (20:27)
[2018-04-20] VITALS: BP 136/54
[2018-04-20] MEDS: Cefepime HCl 2 GM in D5W 55 ML IVPB SCH ×2 (02:13→15:17)
[2018-04-20 04:00] VITALS: BP 128/73
[2018-04-20 06:22] LABS: BASOPHILS % (AUTO) 0.7 % (0.0-2.0); EOSINOPHILS % (AUTO) 0.7 % (0.0-3.0); HEMATOCRIT 33.3 % (37.0-47.0); HEMOGLOBIN 11.5 G/DL (12.0-16.0); LYMPHOCYTES % (AUTO) 14.4 % (20.0-45.0); MEAN CORPUSCULAR VOLUME 89 FL (80-99); MONOCYTES % (AUTO) 10.2 % (1.0-10.0); NEUTROPHILS % (AUTO) 74.1 % (45.0-75.0); PLATELET COUNT 197 K/UL (150-450); RED BLOOD COUNT 3.75 M/UL (4.20-5.40); WHITE BLOOD COUNT 14.5 K/UL (4.8-10.8)
[2018-04-20 06:31] LABS: ANION GAP 8 mmol/L (5-15); BLOOD UREA NITROGEN 6 mg/dL (7-18); CALCIUM 7.9 MG/DL (8.5-10.1); CARBON DIOXIDE 23 MMOL/L (21-32); CHLORIDE 106 MMOL/L (98-107); CREATININE 1.1 MG/DL (0.55-1.30); POTASSIUM 3.6 MMOL/L (3.5-5.1); SODIUM 137 MMOL/L (136-145)
[2018-04-20 08:00] VITALS: BP 132/68
--- NOTE | 2018-04-20 09:57 | Nephrology Progress Note ---
Assessment/Plan Assessment/Plan A/P 1) Sepsis- pyleonep/UTI - IV Abx per ID. WBC improving 2) ADPKD- - polycystic liver as well - will need outpt follow up with GI and renal 3) SOB with cough- per Pulm. Appreciate w/u 4) DVT Prophylaxsis with Lovenox Subjective Date patient seen: Apr 20, 2018 Time patient seen: 09:55 ROS Limited/Unobtainable: No Endocrine: Reports: intolerance to cold Allergies: Coded Allergies: No Known Allergies (Verified , 05/10/11) Subjective Patient feeling better. Requesting dietary change Objective Last 24 Hour Vital Signs Date Time Temp Pulse Resp B/P (MAP) Pulse Ox O2 Delivery O2 Flow Rate FiO2 04/20/18 09:00 Room Air 04/20/18 08:00 99.9 89 19 132/68 (89) 99 99.9 04/20/18 04:00 98.7 104 20 128/73 (91) 96 98.7 04/20/18 00:00 100.2 89 18 136/54 (81) 99 100.2 04/19/18 21:00 Room Air 04/19/18 20:00 98.4 96 18 137/59 (85) 98 98.4 04/19/18 17:54 100.0 04/19/18 17:24 101.7 04/19/18 15:50 101.7 104 20 156/68 (97) 98 101.7 04/19/18 12:00 98.0 86 18 141/88 (105) 97 98.0 Intake and Output 04/19/18 04/20/18 19:00 07:00 Intake Total 2145 ml 1430 ml Balance 2145 ml 1430 ml Intake Oral 840 ml IV Total 1305 ml 1430 ml # Voids 5 4 # Bowel Movements 1 Laboratory Tests 04/20/18 05:10: White Blood Count 14.5H, Red Blood Count 3.75L, Hemoglobin 11.5L, Hematocrit 33.3L, Mean Corpuscular Volume 89, Mean Corpuscular Hemoglobin 30.6, Mean Corpuscular Hemoglobin Concent 34.5, Red Cell Distribution Width 12.0, Platelet Count 197, Mean Platelet Volume 7.5, Neutrophils (%) (Auto) 74.1, Lymphocytes (% ) (Auto) 14.4L, Monocytes (%) (Auto) 10.2H, Eosinophils (%) (Auto) 0.7, Basophils (%) (Auto) 0.7, Sodium Level 137, Potassium Level 3.6, Chloride Level 106, Carbon Dioxide Level 23, Anion Gap 8, Blood Urea Nitrogen 6L, Creatinine 1.1, Estimat Glomerular Filtration Rate 53.3, Glucose Level 94, Calcium Level 7.9L Height (Feet): 4 Height (Inches): 11.00 Weight (Pounds): 135 General Appearance: no apparent distress, alert EENT: normal ENT inspection Neck: normal alignment, supple Cardiovascular: normal rate, regular rhythm Respiratory/Chest: lungs clear, normal breath sounds Edema: no edema noted Arm (L), no edema noted Arm (R), no edema noted Leg (L), no edema noted Leg (R), no edema noted Pedal (L), no edema noted Pedal (R), no edema noted Generalized Pete Villarreal MD Apr 20, 2018 09:57
[2018-04-20 12:00] VITALS: BP 146/73
--- NOTE | 2018-04-20 15:19 | Pulmonology Progress Note ---
Assessment/Plan Assessment/Plan sob cxr negative PLAN venous US pending D dimer chest Xray reviewed will monitor and recommend still not done Subjective Allergies: Coded Allergies: No Known Allergies (Verified , 05/10/11) Subjective care noted and reviewed Objective Last 24 Hour Vital Signs Date Time Temp Pulse Resp B/P (MAP) Pulse Ox O2 Delivery O2 Flow Rate FiO2 04/20/18 12:00 98.3 88 18 146/73 (97) 98.3 04/20/18 09:00 Room Air 04/20/18 08:00 99.9 89 19 132/68 (89) 99 99.9 04/20/18 04:00 98.7 104 20 128/73 (91) 96 98.7 04/20/18 00:00 100.2 89 18 136/54 (81) 99 100.2 04/19/18 21:00 Room Air 04/19/18 20:00 98.4 96 18 137/59 (85) 98 98.4 04/19/18 17:54 100.0 04/19/18 17:24 101.7 04/19/18 15:50 101.7 104 20 156/68 (97) 98 101.7 Intake and Output 04/19/18 04/20/18 19:00 07:00 Intake Total 2145 ml 1430 ml Balance 2145 ml 1430 ml Intake Oral 840 ml IV Total 1305 ml 1430 ml # Voids 5 4 # Bowel Movements 1 Objective WDWN NAD clear breath sounds bilaterally without rhonchi or wheeze [id number] without MRG NABS nontender no HSM no CCE nonfocal Microbiology Date/Time Source Procedure Growth Status 04/18/18 16:36 Blood Blood Culture - Preliminary NO GROWTH AFTER 24 HOURS Resulted 04/18/18 16:15 Blood Blood Culture - Preliminary NO GROWTH AFTER 24 HOURS Resulted 04/19/18 17:30 Urine,Clean Catch Urine Culture - Preliminary NO GROWTH Resulted Laboratory Tests 04/20/18 05:10: White Blood Count 14.5H, Red Blood Count 3.75L, Hemoglobin 11.5L, Hematocrit 33.3L, Mean Corpuscular Volume 89, Mean Corpuscular Hemoglobin 30.6, Mean Corpuscular Hemoglobin Concent 34.5, Red Cell Distribution Width 12.0, Platelet Count 197, Mean Platelet Volume 7.5, Neutrophils (%) (Auto) 74.1, Lymphocytes (% ) (Auto) 14.4L, Monocytes (%) (Auto) 10.2H, Eosinophils (%) (Auto) 0.7, Basophils (%) (Auto) 0.7, Sodium Level 137, Potassium Level 3.6, Chloride Level 106, Carbon Dioxide Level 23, Anion Gap 8, Blood Urea Nitrogen 6L, Creatinine 1.1, Estimat Glomerular Filtration Rate 53.3, Glucose Level 94, Calcium Level 7.9L Current Medications Medications (Trade) Dose Ordered Sig/Daniela Route PRN Reason Start Time Stop Time Status Last Admin Dose Admin Acetaminophen (Tylenol) 500 mg Q4H PRN ORAL Mild Pain/Temp > 100.5 04/19/18 08:10 05/19/18 08:09 04/19/18 17:24 Cefepime HCl 2 gm/ Dextrose 55 ml @ 110 mls/hr Q12H IVPB 04/19/18 03:00 04/26/18 02:59 04/20/18 15:17 Dextrose (Dextrose 50%) 25 ml Q1H PRN IV Hypoglycemia 04/18/18 19:45 Dextrose (Dextrose 50%) 50 ml Q1H PRN IV Hypoglycemia 04/18/18 19:45 Diphenhydramine HCl (Benadryl) 25 mg Q6H PRN ORAL Itching/Pruritis 04/18/18 19:45 05/18/18 19:44 Enoxaparin Sodium (Lovenox) 40 mg Q24H SUBQ 04/18/18 20:45 05/18/18 20:44 04/19/18 20:27 Famotidine (Pepcid) 40 mg DAILY ORAL 04/19/18 09:00 05/19/18 08:59 04/20/18 08:10 Iopamidol (Isovue-300 100ml) 100 ml NOW PRN INJ Radiology Procedure 04/18/18 17:15 Lorazepam (Ativan 2mg/ml 1ml) 1 mg Q8H PRN IV For Anxiety 04/18/18 19:45 04/25/18 19:44 Ondansetron HCl (Zofran) 4 mg Q6H PRN IVP Nausea & Vomiting 04/18/18 19:45 05/18/18 19:44 Leroy Morales MD Apr 20, 2018 15:19
[2018-04-20 15:29] VITALS: BP 124/81
--- NOTE | 2018-04-20 15:43 | Infectious Diseases Prog Note ---
Assessment/Plan Problems: (1) Pyelonephritis Assessment & Plan: complicated with sepsis , continue cefepime pending urine culture (2) Sepsis Assessment & Plan: due to the above , continue cefepime pending blood culture (3) Bilateral flank pain Assessment & Plan: due to PCKD and pyelonephritis , continue antibiotics with pain management (4) Polycystic kidney disease, congenital Assessment & Plan: needs close follow up with nephrology (5) Fever Assessment & Plan: due to the above continue tylenol and antibiotics , monitor cultures (6) Polycystic liver disease, congenital Assessment & Plan: follow up with GI Subjective Constitutional: Reports: no symptoms HEENT: Reports: no symptoms Respiratory: Reports: no symptoms Breasts: Reports: no symptoms Cardiovascular: Reports: no symptoms Gastrointestinal/Abdominal: Reports: bloating, other - pain Genitourinary: Reports: dysuria, frequency Neurologic: Reports: no symptoms Psychiatric: Reports: no symptoms Skin: Reports: no symptoms Endocrine: Reports: no symptoms Hematologic: Reports: no symptoms Musculoskeletal: Reports: no symptoms Allergies: Coded Allergies: No Known Allergies (Verified , 05/10/11) Objective Vital Signs Last 24 Hour Vital Signs Date Time Temp Pulse Resp B/P (MAP) Pulse Ox O2 Delivery O2 Flow Rate FiO2 04/20/18 15:29 98.4 93 19 124/81 (95) 100 98.4 04/20/18 12:00 98.3 88 18 146/73 (97) 98.3 04/20/18 09:00 Room Air 04/20/18 08:00 99.9 89 19 132/68 (89) 99 99.9 04/20/18 04:00 98.7 104 20 128/73 (91) 96 98.7 04/20/18 00:00 100.2 89 18 136/54 (81) 99 100.2 04/19/18 21:00 Room Air 04/19/18 20:00 98.4 96 18 137/59 (85) 98 98.4 04/19/18 17:54 100.0 04/19/18 17:24 101.7 04/19/18 15:50 101.7 104 20 156/68 (97) 98 101.7 Height (Feet): 4 Height (Inches): 11.00 Weight (Pounds): 135 General Appearance: WD/WN, no acute distress HEENT: normocephalic, atraumatic, anicteric, mucous membranes moist, EOMI, pharynx normal, supple, no JVD Respiratory/Chest: chest wall non-tender, lungs clear, normal breath sounds, no respiratory distress, no accessory muscle use Cardiovascular: normal peripheral pulses, normal rate, regular rhythm, no gallop/murmur, no JVD Abdomen: normal bowel sounds, soft, non tender, no organomegaly, non distended , no mass, no scars Extremities: no cyanosis, no clubbing Skin: no rash, no lesions, no ulcers Neurologic/Psychiatric: alert, oriented x 3, responsive Lymphatic: no neck adenopathy, no groin adenopathy Musculoskeletal: normal muscle bulk, no effusion Microbiology Date/Time Source Procedure Growth Status 04/18/18 16:36 Blood Blood Culture - Preliminary NO GROWTH AFTER 24 HOURS Resulted 04/18/18 16:15 Blood Blood Culture - Preliminary NO GROWTH AFTER 24 HOURS Resulted 04/19/18 17:30 Urine,Clean Catch Urine Culture - Preliminary NO GROWTH Resulted Laboratory Tests Test 04/20/18 05:10 White Blood Count 14.5 K/UL (4.8-10.8) H Red Blood Count 3.75 M/UL (4.20-5.40) L Hemoglobin 11.5 G/DL (12.0-16.0) L Hematocrit 33.3 % (37.0-47.0) L Mean Corpuscular Volume 89 FL (80-99) Mean Corpuscular Hemoglobin 30.6 PG (27.0-31.0) Mean Corpuscular Hemoglobin Concent 34.5 G/DL (32.0-36.0) Red Cell Distribution Width 12.0 % (11.6-14.8) Platelet Count 197 K/UL (150-450) Mean Platelet Volume 7.5 FL (6.5-10.1) Neutrophils (%) (Auto) 74.1 % (45.0-75.0) Lymphocytes (%) (Auto) 14.4 % (20.0-45.0) L Monocytes (%) (Auto) 10.2 % (1.0-10.0) H Eosinophils (%) (Auto) 0.7 % (0.0-3.0) Basophils (%) (Auto) 0.7 % (0.0-2.0) Sodium Level 137 MMOL/L (136-145) Potassium Level 3.6 MMOL/L (3.5-5.1) Chloride Level 106 MMOL/L (98-107) Carbon Dioxide Level 23 MMOL/L (21-32) Anion Gap 8 mmol/L (5-15) Blood Urea Nitrogen 6 mg/dL (7-18) L Creatinine 1.1 MG/DL (0.55-1.30) Estimat Glomerular Filtration Rate 53.3 mL/min (>60) Glucose Level 94 MG/DL (74-106) Calcium Level 7.9 MG/DL (8.5-10.1) L Current Medications Medications (Trade) Dose Ordered Sig/Daniela Route PRN Reason Start Time Stop Time Status Last Admin Dose Admin Acetaminophen (Tylenol) 500 mg Q4H PRN ORAL Mild Pain/Temp > 100.5 04/19/18 08:10 05/19/18 08:09 04/19/18 17:24 Cefepime HCl 2 gm/ Dextrose 55 ml @ 110 mls/hr Q12H IVPB 04/19/18 03:00 04/26/18 02:59 04/20/18 15:17 Dextrose (Dextrose 50%) 25 ml Q1H PRN IV Hypoglycemia 04/18/18 19:45 Dextrose (Dextrose 50%) 50 ml Q1H PRN IV Hypoglycemia 04/18/18 19:45 Diphenhydramine HCl (Benadryl) 25 mg Q6H PRN ORAL Itching/Pruritis 04/18/18 19:45 05/18/18 19:44 Enoxaparin Sodium (Lovenox) 40 mg Q24H SUBQ 04/18/18 20:45 05/18/18 20:44 04/19/18 20:27 Famotidine (Pepcid) 40 mg DAILY ORAL 04/19/18 09:00 05/19/18 08:59 04/20/18 08:10 Iopamidol (Isovue-300 100ml) 100 ml NOW PRN INJ Radiology Procedure 04/18/18 17:15 Lorazepam (Ativan 2mg/ml 1ml) 1 mg Q8H PRN IV For Anxiety 04/18/18 19:45 04/25/18 19:44 Ondansetron HCl (Zofran) 4 mg Q6H PRN IVP Nausea & Vomiting 04/18/18 19:45 05/18/18 19:44 Kaleigh Pichardo M.D. Apr 20, 2018 15:43
[2018-04-20 20:00] VITALS: BP 137/79
[2018-04-20] MEDS: Enoxaparin 40mg Inj SUBQ SCH (20:17)
[2018-04-20] MEDS: Acetaminophen 500mg (ES) tab ORAL PRN (20:17)
[2018-04-21] VITALS: BP 132/78
[2018-04-21] MEDS: Cefepime HCl 2 GM in D5W 55 ML IVPB SCH ×2 (03:35→15:06)
[2018-04-21 04:00] VITALS: BP 140/74
[2018-04-21 07:21] LABS: BASOPHILS % (AUTO) 0.5 % (0.0-2.0); HEMATOCRIT 34.5 % (37.0-47.0); HEMOGLOBIN 11.8 G/DL (12.0-16.0); LYMPHOCYTES % (AUTO) 13.2 % (20.0-45.0); MEAN CORPUSCULAR VOLUME 87 FL (80-99); NEUTROPHILS % (AUTO) 76.3 % (45.0-75.0); PLATELET COUNT 243 K/UL (150-450); RED BLOOD COUNT 3.95 M/UL (4.20-5.40); RED CELL DISTRIBUTION WIDTH 12.3 % (11.6-14.8); WHITE BLOOD COUNT 13.6 K/UL (4.8-10.8)
[2018-04-21 07:59] VITALS: BP 145/64
--- NOTE | 2018-04-21 09:58 | Nephrology Progress Note ---
Assessment/Plan Assessment/Plan A/P 1) Sepsis- pyleonep/UTI - IV Abx per ID. WBC improving down to 13.6 - plan on DC tomorrow 2) ADPKD- - polycystic liver as well - will need outpt follow up with GI and renal 3) SOB with cough- per Pulm. 4) DVT Prophylaxsis with Lovenox Subjective Date patient seen: Apr 21, 2018 Time patient seen: 09:53 ROS Limited/Unobtainable: No Allergies: Coded Allergies: No Known Allergies (Verified , 05/10/11) Subjective Patient feeling better. Still having occasional rigors Objective Last 24 Hour Vital Signs Date Time Temp Pulse Resp B/P (MAP) Pulse Ox O2 Delivery O2 Flow Rate FiO2 04/21/18 07:59 99.7 98 18 145/64 (91) 95 99.7 04/21/18 07:52 Room Air 04/21/18 04:00 99.2 94 16 140/74 (96) 100 99.2 04/21/18 00:00 99.8 98 18 132/78 (96) 97 99.8 04/20/18 21:00 Room Air 04/20/18 20:47 100.0 04/20/18 20:17 101.3 04/20/18 20:00 101.3 100 18 137/79 (98) 97 101.3 04/20/18 15:29 98.4 93 19 124/81 (95) 100 98.4 04/20/18 12:00 98.3 88 18 146/73 (97) 98.3 Intake and Output 04/20/18 04/21/18 19:00 07:00 Intake Total 305 ml 750 ml Balance 305 ml 750 ml Intake Oral 750 ml IV Total 305 ml # Voids 3 Laboratory Tests 04/21/18 06:45: White Blood Count 13.6H, Red Blood Count 3.95L, Hemoglobin 11.8L, Hematocrit 34.5L, Mean Corpuscular Volume 87, Mean Corpuscular Hemoglobin 30.0, Mean Corpuscular Hemoglobin Concent 34.3, Red Cell Distribution Width 12.3, Platelet Count 243, Mean Platelet Volume 7.6, Neutrophils (%) (Auto) 76.3H, Lymphocytes ( %) (Auto) 13.2L, Monocytes (%) (Auto) 9.0, Eosinophils (%) (Auto) 1.0, Basophils (%) (Auto) 0.5 Height (Feet): 4 Height (Inches): 11.00 Weight (Pounds): 135 General Appearance: WD/WN EENT: normal ENT inspection Neck: normal alignment, supple Cardiovascular: normal rate, regular rhythm Respiratory/Chest: lungs clear, normal breath sounds Abdomen: non tender, soft Edema: no edema noted Arm (L), no edema noted Arm (R), no edema noted Leg (L), no edema noted Leg (R), no edema noted Pedal (L), no edema noted Pedal (R), no edema noted Generalized Pete Villarreal MD Apr 21, 2018 09:58
[2018-04-21 12:00] VITALS: BP 153/82
--- NOTE | 2018-04-21 13:58 | Pulmonology Progress Note ---
Assessment/Plan Assessment/Plan sob cxr negative mild sinus tachycardia PLAN stable overall chest Xray reviewed will monitor and recommend still not done Subjective Allergies: Coded Allergies: No Known Allergies (Verified , 05/10/11) Subjective care noted and reviewed Objective Last 24 Hour Vital Signs Date Time Temp Pulse Resp B/P (MAP) Pulse Ox O2 Delivery O2 Flow Rate FiO2 04/21/18 12:00 99.3 89 18 153/82 (105) 100 99.3 04/21/18 07:59 99.7 98 18 145/64 (91) 95 99.7 04/21/18 07:52 Room Air 04/21/18 04:00 99.2 94 16 140/74 (96) 100 99.2 04/21/18 00:00 99.8 98 18 132/78 (96) 97 99.8 04/20/18 21:00 Room Air 04/20/18 20:47 100.0 04/20/18 20:17 101.3 04/20/18 20:00 101.3 100 18 137/79 (98) 97 101.3 04/20/18 15:29 98.4 93 19 124/81 (95) 100 98.4 Intake and Output 04/20/18 04/21/18 19:00 07:00 Intake Total 305 ml 750 ml Balance 305 ml 750 ml Intake Oral 750 ml IV Total 305 ml # Voids 3 Objective WDWN NAD clear breath sounds bilaterally without rhonchi or wheeze [id number] without MRG NABS nontender no HSM no CCE nonfocal Microbiology Date/Time Source Procedure Growth Status 04/19/18 16:10 Blood Blood Culture - Preliminary NO GROWTH AFTER 24 HOURS Resulted 04/19/18 15:15 Blood Blood Culture - Preliminary NO GROWTH AFTER 24 HOURS Resulted 04/18/18 16:36 Blood Blood Culture - Preliminary NO GROWTH AFTER 48 HOURS Resulted 04/18/18 16:15 Blood Blood Culture - Preliminary NO GROWTH AFTER 48 HOURS Resulted 04/19/18 17:30 Urine,Clean Catch Urine Culture - Preliminary NO GROWTH AFTER 24 HOURS Resulted Laboratory Tests 04/21/18 06:45: White Blood Count 13.6H, Red Blood Count 3.95L, Hemoglobin 11.8L, Hematocrit 34.5L, Mean Corpuscular Volume 87, Mean Corpuscular Hemoglobin 30.0, Mean Corpuscular Hemoglobin Concent 34.3, Red Cell Distribution Width 12.3, Platelet Count 243, Mean Platelet Volume 7.6, Neutrophils (%) (Auto) 76.3H, Lymphocytes ( %) (Auto) 13.2L, Monocytes (%) (Auto) 9.0, Eosinophils (%) (Auto) 1.0, Basophils (%) (Auto) 0.5 Current Medications Medications (Trade) Dose Ordered Sig/Daniela Route PRN Reason Start Time Stop Time Status Last Admin Dose Admin Acetaminophen (Tylenol) 500 mg Q4H PRN ORAL Mild Pain/Temp > 100.5 04/19/18 08:10 05/19/18 08:09 04/20/18 20:17 Cefepime HCl 2 gm/ Dextrose 55 ml @ 110 mls/hr Q12H IVPB 04/19/18 03:00 04/26/18 02:59 04/21/18 03:35 Dextrose (Dextrose 50%) 25 ml Q1H PRN IV Hypoglycemia 04/18/18 19:45 Dextrose (Dextrose 50%) 50 ml Q1H PRN IV Hypoglycemia 04/18/18 19:45 Diphenhydramine HCl (Benadryl) 25 mg Q6H PRN ORAL Itching/Pruritis 04/18/18 19:45 05/18/18 19:44 Enoxaparin Sodium (Lovenox) 40 mg Q24H SUBQ 04/18/18 20:45 05/18/18 20:44 04/20/18 20:17 Famotidine (Pepcid) 40 mg DAILY ORAL 04/19/18 09:00 05/19/18 08:59 04/21/18 08:17 Lorazepam (Ativan 2mg/ml 1ml) 1 mg Q8H PRN IV For Anxiety 04/18/18 19:45 04/25/18 19:44 Ondansetron HCl (Zofran) 4 mg Q6H PRN IVP Nausea & Vomiting 04/18/18 19:45 05/18/18 19:44 Leroy Morales MD Apr 21, 2018 13:58
[2018-04-21] MEDS: Acetaminophen 500mg (ES) tab ORAL PRN (15:49)
[2018-04-21 16:00] VITALS: BP 146/58
--- NOTE | 2018-04-21 16:46 | Infectious Diseases Prog Note ---
Assessment/Plan Problems: (1) Pyelonephritis Assessment & Plan: complicated with sepsis , continue cefepime empiric coverage , urine culture is negative (2) Sepsis Assessment & Plan: due to the above , continue cefepime empirically for now , blood culture is negative (3) Bilateral flank pain Assessment & Plan: due to PCKD and pyelonephritis , continue antibiotics with pain management (4) Polycystic kidney disease, congenital Assessment & Plan: needs close follow up with nephrology (5) Fever Assessment & Plan: due to the above continue tylenol and antibiotics , monitor cultures (6) Polycystic liver disease, congenital Assessment & Plan: follow up with GI Subjective Constitutional: Reports: fatigue HEENT: Reports: no symptoms Respiratory: Reports: no symptoms Breasts: Reports: no symptoms Cardiovascular: Reports: no symptoms Gastrointestinal/Abdominal: Reports: no symptoms Genitourinary: Reports: no symptoms Neurologic: Reports: no symptoms Psychiatric: Reports: no symptoms Skin: Reports: no symptoms Endocrine: Reports: no symptoms Hematologic: Reports: no symptoms Musculoskeletal: Reports: no symptoms Allergies: Coded Allergies: No Known Allergies (Verified , 05/10/11) Objective Vital Signs Last 24 Hour Vital Signs Date Time Temp Pulse Resp B/P (MAP) Pulse Ox O2 Delivery O2 Flow Rate FiO2 04/21/18 16:00 100.6 105 20 146/58 (87) 97 100.6 04/21/18 15:49 101.7 04/21/18 12:00 99.3 89 18 153/82 (105) 100 99.3 04/21/18 07:59 99.7 98 18 145/64 (91) 95 99.7 04/21/18 07:52 Room Air 04/21/18 04:00 99.2 94 16 140/74 (96) 100 99.2 04/21/18 00:00 99.8 98 18 132/78 (96) 97 99.8 04/20/18 21:00 Room Air 04/20/18 20:47 100.0 04/20/18 20:17 101.3 04/20/18 20:00 101.3 100 18 137/79 (98) 97 101.3 Height (Feet): 4 Height (Inches): 11.00 Weight (Pounds): 135 General Appearance: WD/WN, no acute distress HEENT: normocephalic, atraumatic, anicteric, mucous membranes moist, PERRL, pharynx normal, supple, no JVD Respiratory/Chest: chest wall non-tender, lungs clear, normal breath sounds, no respiratory distress, no accessory muscle use Cardiovascular: normal peripheral pulses, normal rate, regular rhythm, no gallop/murmur, no JVD Abdomen: no scars, hypoactive bowel sounds, tender, mass Extremities: no cyanosis, no clubbing Skin: no rash, no lesions, no ulcers Neurologic/Psychiatric: alert, oriented x 3, responsive Lymphatic: no neck adenopathy, no groin adenopathy Musculoskeletal: normal muscle bulk, no effusion Microbiology Date/Time Source Procedure Growth Status 04/19/18 16:10 Blood Blood Culture - Preliminary NO GROWTH AFTER 24 HOURS Resulted 04/19/18 15:15 Blood Blood Culture - Preliminary NO GROWTH AFTER 24 HOURS Resulted 04/19/18 17:30 Urine,Clean Catch Urine Culture - Preliminary NO GROWTH AFTER 24 HOURS Resulted Laboratory Tests Test 04/21/18 06:45 White Blood Count 13.6 K/UL (4.8-10.8) H Red Blood Count 3.95 M/UL (4.20-5.40) L Hemoglobin 11.8 G/DL (12.0-16.0) L Hematocrit 34.5 % (37.0-47.0) L Mean Corpuscular Volume 87 FL (80-99) Mean Corpuscular Hemoglobin 30.0 PG (27.0-31.0) Mean Corpuscular Hemoglobin Concent 34.3 G/DL (32.0-36.0) Red Cell Distribution Width 12.3 % (11.6-14.8) Platelet Count 243 K/UL (150-450) Mean Platelet Volume 7.6 FL (6.5-10.1) Neutrophils (%) (Auto) 76.3 % (45.0-75.0) H Lymphocytes (%) (Auto) 13.2 % (20.0-45.0) L Monocytes (%) (Auto) 9.0 % (1.0-10.0) Eosinophils (%) (Auto) 1.0 % (0.0-3.0) Basophils (%) (Auto) 0.5 % (0.0-2.0) Current Medications Medications (Trade) Dose Ordered Sig/Daniela Route PRN Reason Start Time Stop Time Status Last Admin Dose Admin Acetaminophen (Tylenol) 500 mg Q4H PRN ORAL Mild Pain/Temp > 100.5 04/19/18 08:10 05/19/18 08:09 04/21/18 15:49 Cefepime HCl 2 gm/ Dextrose 55 ml @ 110 mls/hr Q12H IVPB 04/19/18 03:00 04/26/18 02:59 04/21/18 15:06 Dextrose (Dextrose 50%) 25 ml Q1H PRN IV Hypoglycemia 04/18/18 19:45 Dextrose (Dextrose 50%) 50 ml Q1H PRN IV Hypoglycemia 04/18/18 19:45 Diphenhydramine HCl (Benadryl) 25 mg Q6H PRN ORAL Itching/Pruritis 04/18/18 19:45 05/18/18 19:44 Enoxaparin Sodium (Lovenox) 40 mg Q24H SUBQ 04/18/18 20:45 05/18/18 20:44 04/20/18 20:17 Famotidine (Pepcid) 40 mg DAILY ORAL 04/19/18 09:00 05/19/18 08:59 04/21/18 08:17 Lorazepam (Ativan 2mg/ml 1ml) 1 mg Q8H PRN IV For Anxiety 04/18/18 19:45 04/25/18 19:44 Ondansetron HCl (Zofran) 4 mg Q6H PRN IVP Nausea & Vomiting 04/18/18 19:45 05/18/18 19:44 Kaleigh Pichardo M.D. Apr 21, 2018 16:46
[2018-04-21 20:00] VITALS: BP 146/76
[2018-04-21] MEDS: Enoxaparin 40mg Inj SUBQ SCH (21:04)
[2018-04-22] VITALS: BP 150/70
[2018-04-22] MEDS: Acetaminophen 500mg (ES) tab ORAL PRN (00:41)
[2018-04-22] MEDS: Cefepime HCl 2 GM in D5W 55 ML IVPB SCH ×2 (03:48→15:39)
[2018-04-22 04:00] VITALS: BP 139/76
[2018-04-22 06:32] LABS: BASOPHILS % (AUTO) 0.7 % (0.0-2.0); EOSINOPHILS % (AUTO) 1.3 % (0.0-3.0); HEMATOCRIT 35.8 % (37.0-47.0); HEMOGLOBIN 12.2 G/DL (12.0-16.0); LYMPHOCYTES % (AUTO) 16.5 % (20.0-45.0); MEAN CORPUSCULAR VOLUME 88 FL (80-99); MONOCYTES % (AUTO) 7.4 % (1.0-10.0); NEUTROPHILS % (AUTO) 74.1 % (45.0-75.0); PLATELET COUNT 244 K/UL (150-450); RED BLOOD COUNT 4.06 M/UL (4.20-5.40); RED CELL DISTRIBUTION WIDTH 12.3 % (11.6-14.8); WHITE BLOOD COUNT 13.6 K/UL (4.8-10.8)
[2018-04-22 08:00] VITALS: BP 118/70
--- NOTE | 2018-04-22 08:44 | Nephrology Progress Note ---
Assessment/Plan Assessment/Plan A/P 1) Sepsis- pyleonep/UTI - IV Abx per ID. - plan on DC today if cleared by ID 2) ADPKD- - polycystic liver as well - will need outpt follow up with GI and renal. Patient have her PCP refer 3) SOB with cough- per Pulm. Resolved 4) DVT Prophylaxsis with Lovenox Subjective Date patient seen: Apr 22, 2018 Time patient seen: 08:43 ROS Limited/Unobtainable: No Allergies: Coded Allergies: No Known Allergies (Verified , 05/10/11) All Systems: reviewed and negative except above Subjective Patient feeling better. No rigors today. But low grade temp 100.6 Objective Last 24 Hour Vital Signs Date Time Temp Pulse Resp B/P (MAP) Pulse Ox O2 Delivery O2 Flow Rate FiO2 04/22/18 08:00 98.2 95 16 118/70 (86) 97 98.2 04/22/18 04:00 98.1 72 18 139/76 (97) 98 98.1 04/22/18 01:11 99.8 04/22/18 00:41 100.6 04/22/18 00:00 100.6 94 19 150/70 (96) 97 100.6 04/21/18 21:00 Room Air 04/21/18 20:00 98.7 77 18 146/76 (99) 98 98.7 04/21/18 18:26 98.7 98.7 04/21/18 16:00 100.6 105 20 146/58 (87) 97 100.6 04/21/18 15:49 101.7 04/21/18 12:00 99.3 89 18 153/82 (105) 100 99.3 Intake and Output 04/21/18 04/22/18 19:00 07:00 Intake Total 800 ml 295 ml Balance 800 ml 295 ml Intake Oral 240 ml IV Total 55 ml Other 800 ml # Voids 4 2 Laboratory Tests 04/22/18 05:15: White Blood Count 13.6H, Red Blood Count 4.06L, Hemoglobin 12.2, Hematocrit 35.8L, Mean Corpuscular Volume 88, Mean Corpuscular Hemoglobin 30.1, Mean Corpuscular Hemoglobin Concent 34.1, Red Cell Distribution Width 12.3, Platelet Count 244, Mean Platelet Volume 7.2, Neutrophils (%) (Auto) 74.1, Lymphocytes (% ) (Auto) 16.5L, Monocytes (%) (Auto) 7.4, Eosinophils (%) (Auto) 1.3, Basophils (%) (Auto) 0.7 Height (Feet): 4 Height (Inches): 11.00 Weight (Pounds): 135 General Appearance: no apparent distress, alert EENT: normal ENT inspection Neck: normal alignment, supple Cardiovascular: regular rhythm Respiratory/Chest: lungs clear, normal breath sounds Abdomen: non tender, soft Edema: no edema noted Arm (L), no edema noted Arm (R), no edema noted Leg (L), no edema noted Leg (R), no edema noted Pedal (L), no edema noted Pedal (R), no edema noted Generalized Pete Villarreal MD Apr 22, 2018 08:44
[2018-04-22 12:00] VITALS: BP 143/80
--- NOTE | 2018-04-22 12:41 | Pulmonology Progress Note ---
Assessment/Plan Assessment/Plan sob cxr negative mild sinus tachycardia PLAN stable overall chest Xray reviewed pulmonary issues resolved Subjective Allergies: Coded Allergies: No Known Allergies (Verified , 05/10/11) Subjective care noted and reviewed Objective Last 24 Hour Vital Signs Date Time Temp Pulse Resp B/P (MAP) Pulse Ox O2 Delivery O2 Flow Rate FiO2 04/22/18 12:00 98.2 71 16 143/80 (101) 99 98.2 04/22/18 08:15 Room Air 04/22/18 08:00 98.2 95 16 118/70 (86) 97 98.2 04/22/18 04:00 98.1 72 18 139/76 (97) 98 98.1 04/22/18 01:11 99.8 04/22/18 00:41 100.6 04/22/18 00:00 100.6 94 19 150/70 (96) 97 100.6 04/21/18 21:00 Room Air 04/21/18 20:00 98.7 77 18 146/76 (99) 98 98.7 04/21/18 18:26 98.7 98.7 04/21/18 16:00 100.6 105 20 146/58 (87) 97 100.6 04/21/18 15:49 101.7 Intake and Output 04/21/18 04/22/18 19:00 07:00 Intake Total 800 ml 295 ml Balance 800 ml 295 ml Intake Oral 240 ml IV Total 55 ml Other 800 ml # Voids 4 2 Objective WDWN NAD clear breath sounds bilaterally without rhonchi or wheeze [id number] without MRG NABS nontender no HSM no CCE nonfocal Microbiology Date/Time Source Procedure Growth Status 04/19/18 16:10 Blood Blood Culture - Preliminary NO GROWTH AFTER 48 HOURS Resulted 04/19/18 15:15 Blood Blood Culture - Preliminary NO GROWTH AFTER 48 HOURS Resulted 04/19/18 17:30 Urine,Clean Catch Urine Culture - Final NO GROWTH AFTER 48 HOURS Complete Laboratory Tests 04/22/18 05:15: White Blood Count 13.6H, Red Blood Count 4.06L, Hemoglobin 12.2, Hematocrit 35.8L, Mean Corpuscular Volume 88, Mean Corpuscular Hemoglobin 30.1, Mean Corpuscular Hemoglobin Concent 34.1, Red Cell Distribution Width 12.3, Platelet Count 244, Mean Platelet Volume 7.2, Neutrophils (%) (Auto) 74.1, Lymphocytes (% ) (Auto) 16.5L, Monocytes (%) (Auto) 7.4, Eosinophils (%) (Auto) 1.3, Basophils (%) (Auto) 0.7 Current Medications Medications (Trade) Dose Ordered Sig/Daniela Route PRN Reason Start Time Stop Time Status Last Admin Dose Admin Acetaminophen (Tylenol) 500 mg Q4H PRN ORAL Mild Pain/Temp > 100.5 04/19/18 08:10 05/19/18 08:09 04/22/18 00:41 Cefepime HCl 2 gm/ Dextrose 55 ml @ 110 mls/hr Q12H IVPB 04/19/18 03:00 04/26/18 02:59 04/22/18 03:48 Dextrose (Dextrose 50%) 25 ml Q1H PRN IV Hypoglycemia 04/18/18 19:45 Dextrose (Dextrose 50%) 50 ml Q1H PRN IV Hypoglycemia 04/18/18 19:45 Diphenhydramine HCl (Benadryl) 25 mg Q6H PRN ORAL Itching/Pruritis 04/18/18 19:45 05/18/18 19:44 Enoxaparin Sodium (Lovenox) 40 mg Q24H SUBQ 04/18/18 20:45 05/18/18 20:44 04/21/18 21:04 Famotidine (Pepcid) 40 mg DAILY ORAL 04/19/18 09:00 05/19/18 08:59 04/22/18 08:38 Lorazepam (Ativan 2mg/ml 1ml) 1 mg Q8H PRN IV For Anxiety 04/18/18 19:45 04/25/18 19:44 Ondansetron HCl (Zofran) 4 mg Q6H PRN IVP Nausea & Vomiting 04/18/18 19:45 05/18/18 19:44 Leroy Morales MD Apr 22, 2018 12:41
[2018-04-22 16:00] VITALS: BP 127/54
--- NOTE | 2018-04-22 16:11 | Diagnostic Imaging Report ---
Indications: Headache Technique: 3D [id number] images obtained through the [employer] [facility] [facility]. MIP reconstructions were generated in multiple rotational projections Comparison: none Findings: Patent nonstenotic predominant bilateral vertebral arteries. Patent right AICA and PICA, possible common trunk left AICA and PICA. Patent nonstenotic bilateral superior cerebellar arteries. Patent nonstenotic bilateral P1 segments and proximal posterior cerebral artery branches. Patent left posterior communicating artery. No definite right posterior communicating artery demonstrated. The anterior communicating artery is patent. Patent and nonstenotic distal internal carotid arteries. Patent nonstenotic bilateral M1 segments and proximal branches, bilateral A1 segments and proximal branches. No evidence of aneurysm or vascular malformation. Impression: Essentially unremarkable exam. No evidence of intracranial cerebral vascular insufficiency. No evidence of vascular malformation. However, if there is high clinical suspicion for such, contrast MRI should also be performed. Variant [facility] anatomy as described
--- NOTE | 2018-04-22 16:28 | Infectious Diseases Prog Note ---
Assessment/Plan Problems: (1) Pyelonephritis Assessment & Plan: complicated with sepsis , on cefepime empiric coverage, urine culture is negative, will switch to oral cefdinir to finish total of two weeks course of treatment (2) Sepsis Assessment & Plan: due to the above , blood culture grew coag negative staph from one set, most likely contaminant , continue cefepime empirically for now , blood culture is negative (3) Bilateral flank pain Assessment & Plan: due to PCKD and pyelonephritis , continue antibiotics with pain management (4) Polycystic kidney disease, congenital Assessment & Plan: needs close follow up with nephrology, may need B/L nephrectomies if continues to have recurrent symptoms in the future (5) Fever Assessment & Plan: due to the above continue tylenol and antibiotics , monitor cultures (6) Polycystic liver disease, congenital Assessment & Plan: follow up with GI (7) Headache Assessment & Plan: rule out AVM of the brain, or aneurysms , due to PCKD, will order MRA of the brain Subjective Constitutional: Reports: fever, drenching sweats HEENT: Reports: no symptoms Respiratory: Reports: no symptoms Breasts: Reports: no symptoms Cardiovascular: Reports: no symptoms Gastrointestinal/Abdominal: Reports: bloating Genitourinary: Reports: dysuria, hematuria Neurologic: Reports: headache Psychiatric: Reports: no symptoms Skin: Reports: no symptoms Endocrine: Reports: no symptoms Hematologic: Reports: no symptoms Musculoskeletal: Reports: no symptoms Allergies: Coded Allergies: No Known Allergies (Verified , 05/10/11) Objective Vital Signs Last 24 Hour Vital Signs Date Time Temp Pulse Resp B/P (MAP) Pulse Ox O2 Delivery O2 Flow Rate FiO2 04/22/18 16:00 98.2 100 18 127/54 (78) 98 98.2 04/22/18 12:00 98.2 71 16 143/80 (101) 99 98.2 04/22/18 08:15 Room Air 04/22/18 08:00 98.2 95 16 118/70 (86) 97 98.2 04/22/18 04:00 98.1 72 18 139/76 (97) 98 98.1 04/22/18 01:11 99.8 04/22/18 00:41 100.6 04/22/18 00:00 100.6 94 19 150/70 (96) 97 100.6 04/21/18 21:00 Room Air 04/21/18 20:00 98.7 77 18 146/76 (99) 98 98.7 04/21/18 18:26 98.7 98.7 Height (Feet): 4 Height (Inches): 11.00 Weight (Pounds): 135 General Appearance: WD/WN, no acute distress HEENT: normocephalic, atraumatic, anicteric, mucous membranes moist, PERRL Respiratory/Chest: chest wall non-tender, lungs clear, normal breath sounds, no respiratory distress, no accessory muscle use Cardiovascular: normal peripheral pulses, normal rate, regular rhythm, no gallop/murmur, no JVD Abdomen: no organomegaly, non distended, no scars, hypoactive bowel sounds, tender, mass Extremities: no cyanosis, no clubbing Skin: no rash, no lesions, no ulcers Neurologic/Psychiatric: alert, oriented x 3 Lymphatic: no neck adenopathy, no groin adenopathy Musculoskeletal: normal muscle bulk, no effusion Microbiology Date/Time Source Procedure Growth Status 04/19/18 17:30 Urine,Clean Catch Urine Culture - Final NO GROWTH AFTER 48 HOURS Complete Laboratory Tests Test 04/22/18 05:15 White Blood Count 13.6 K/UL (4.8-10.8) H Red Blood Count 4.06 M/UL (4.20-5.40) L Hemoglobin 12.2 G/DL (12.0-16.0) Hematocrit 35.8 % (37.0-47.0) L Mean Corpuscular Volume 88 FL (80-99) Mean Corpuscular Hemoglobin 30.1 PG (27.0-31.0) Mean Corpuscular Hemoglobin Concent 34.1 G/DL (32.0-36.0) Red Cell Distribution Width 12.3 % (11.6-14.8) Platelet Count 244 K/UL (150-450) Mean Platelet Volume 7.2 FL (6.5-10.1) Neutrophils (%) (Auto) 74.1 % (45.0-75.0) Lymphocytes (%) (Auto) 16.5 % (20.0-45.0) L Monocytes (%) (Auto) 7.4 % (1.0-10.0) Eosinophils (%) (Auto) 1.3 % (0.0-3.0) Basophils (%) (Auto) 0.7 % (0.0-2.0) Current Medications Medications (Trade) Dose Ordered Sig/Daniela Route PRN Reason Start Time Stop Time Status Last Admin Dose Admin Acetaminophen (Tylenol) 500 mg Q4H PRN ORAL Mild Pain/Temp > 100.5 04/19/18 08:10 05/19/18 08:09 04/22/18 00:41 Cefepime HCl 2 gm/ Dextrose 55 ml @ 110 mls/hr Q12H IVPB 04/19/18 03:00 04/26/18 02:59 04/22/18 15:39 Dextrose (Dextrose 50%) 25 ml Q1H PRN IV Hypoglycemia 04/18/18 19:45 Dextrose (Dextrose 50%) 50 ml Q1H PRN IV Hypoglycemia 04/18/18 19:45 Diphenhydramine HCl (Benadryl) 25 mg Q6H PRN ORAL Itching/Pruritis 04/18/18 19:45 05/18/18 19:44 Enoxaparin Sodium (Lovenox) 40 mg Q24H SUBQ 04/18/18 20:45 05/18/18 20:44 04/21/18 21:04 Famotidine (Pepcid) 40 mg DAILY ORAL 04/19/18 09:00 05/19/18 08:59 04/22/18 08:38 Lorazepam (Ativan 2mg/ml 1ml) 1 mg Q8H PRN IV For Anxiety 04/18/18 19:45 04/25/18 19:44 Ondansetron HCl (Zofran) 4 mg Q6H PRN IVP Nausea & Vomiting 04/18/18 19:45 05/18/18 19:44 Kaleigh Pichardo M.D. Apr 22, 2018 16:28
[2018-04-22 20:00] VITALS: BP 137/72
[2018-04-22] MEDS: Enoxaparin 40mg Inj SUBQ SCH (20:21)
[2018-04-23] VITALS: BP 143/79
[2018-04-23] MEDS: Cefepime HCl 2 GM in D5W 55 ML IVPB SCH (03:41)
[2018-04-23 03:56] VITALS: BP 130/79
[2018-04-23 06:30] LABS: BASOPHILS % (AUTO) 0.7 % (0.0-2.0); EOSINOPHILS % (AUTO) 1.5 % (0.0-3.0); HEMATOCRIT 38.1 % (37.0-47.0); HEMOGLOBIN 12.8 G/DL (12.0-16.0); LYMPHOCYTES % (AUTO) 16.2 % (20.0-45.0); MEAN CORPUSCULAR VOLUME 88 FL (80-99); MONOCYTES % (AUTO) 7.3 % (1.0-10.0); NEUTROPHILS % (AUTO) 74.3 % (45.0-75.0); PLATELET COUNT 322 K/UL (150-450); RED BLOOD COUNT 4.32 M/UL (4.20-5.40); RED CELL DISTRIBUTION WIDTH 12.1 % (11.6-14.8); WHITE BLOOD COUNT 13.3 K/UL (4.8-10.8)
[2018-04-23 08:00] VITALS: BP 126/65
--- NOTE | 2018-04-23 08:53 | Pulmonology Progress Note ---
Assessment/Plan Assessment/Plan Pulmonary Follow Up Note Assessment/Plan sob cxr negative mild sinus tachycardia PLAN stable overall chest Xray reviewed pulmonary issues resolved Subjective Allergies: Coded Allergies: No Known Allergies (Verified , 05/10/11) Subjective care noted and reviewed Objective Last 24 Hour Vital Signs Date Time Temp Pulse Resp B/P (MAP) Pulse Ox O2 Delivery O2 Flow Rate FiO2 04/22/18 12:00 98.2 71 16 143/80 (101) 99 98.2 04/22/18 08:15 Room Air 04/22/18 08:00 98.2 95 16 118/70 (86) 97 98.2 04/22/18 04:00 98.1 72 18 139/76 (97) 98 98.1 04/22/18 01:11 99.8 04/22/18 00:41 100.6 04/22/18 00:00 100.6 94 19 150/70 (96) 97 100.6 04/21/18 21:00 Room Air 04/21/18 20:00 98.7 77 18 146/76 (99) 98 98.7 04/21/18 18:26 98.7 98.7 04/21/18 16:00 100.6 105 20 146/58 (87) 97 100.6 04/21/18 15:49 101.7 Intake and Output 04/21/18 04/22/18 19:00 07:00 Intake Total 800 ml 295 ml Balance 800 ml 295 ml Intake Oral 240 ml IV Total 55 ml Other 800 ml # Voids 4 2 Objective WDWN NAD clear breath sounds bilaterally without rhonchi or wheeze [id number] without MRG NABS nontender no HSM no CCE nonfocal Microbiology Date/Time Source Procedure Growth Status 04/19/18 16:10 Blood Blood Culture - Preliminary NO GROWTH AFTER 48 HOURS Resulted 04/19/18 15:15 Blood Blood Culture - Preliminary NO GROWTH AFTER 48 HOURS Resulted 04/19/18 17:30 Urine,Clean Catch Urine Culture - Final NO GROWTH AFTER 48 HOURS Complete Laboratory Tests 04/22/18 05:15: White Blood Count 13.6H, Red Blood Count 4.06L, Hemoglobin 12.2, Hematocrit 35.8L, Mean Corpuscular Volume 88, Mean Corpuscular Hemoglobin 30.1, Mean Corpuscular Hemoglobin Concent 34.1, Red Cell Distribution Width 12.3, Platelet Count 244, Mean Platelet Volume 7.2, Neutrophils (%) (Auto) 74.1, Lymphocytes (% ) (Auto) 16.5L, Monocytes (%) (Auto) 7.4, Eosinophils (%) (Auto) 1.3, Basophils (%) (Auto) 0.7 Current Medications Medications (Trade) Dose Ordered Sig/Daniela Route PRN Reason Start Time Stop Time Status Last Admin Dose Admin Acetaminophen (Tylenol) 500 mg Q4H PRN ORAL Mild Pain/Temp > 100.5 04/19/18 08:10 05/19/18 08:09 04/22/18 00:41 Cefepime HCl 2 gm/ Dextrose 55 ml @ 110 mls/hr Q12H IVPB 04/19/18 03:00 04/26/18 02:59 04/22/18 03:48 Dextrose (Dextrose 50%) 25 ml Q1H PRN IV Hypoglycemia 04/18/18 19:45 Dextrose (Dextrose 50%) 50 ml Q1H PRN IV Hypoglycemia 04/18/18 19:45 Diphenhydramine HCl (Benadryl) 25 mg Q6H PRN ORAL Itching/Pruritis 04/18/18 19:45 05/18/18 19:44 Enoxaparin Sodium (Lovenox) 40 mg Q24H SUBQ 04/18/18 20:45 05/18/18 20:44 04/21/18 21:04 Famotidine (Pepcid) 40 mg DAILY ORAL 04/19/18 09:00 05/19/18 08:59 04/22/18 08:38 Lorazepam (Ativan 2mg/ml 1ml) 1 mg Q8H PRN IV For Anxiety 04/18/18 19:45 04/25/18 19:44 Ondansetron HCl (Zofran) 4 mg Q6H PRN IVP Nausea & Vomiting 04/18/18 19:45 05/18/18 19:44 Time of note does not reflect time patient seen Subjective ROS Limited/Unobtainable: No Allergies: Coded Allergies: No Known Allergies (Verified , 05/10/11) Objective Last 24 Hour Vital Signs Date Time Temp Pulse Resp B/P (MAP) Pulse Ox O2 Delivery O2 Flow Rate FiO2 04/23/18 03:56 99.8 92 18 130/79 (96) 99 99.8 04/23/18 00:00 99.8 96 18 143/79 (100) 97 99.8 04/22/18 21:00 Room Air 04/22/18 20:00 99.0 98 19 137/72 (93) 99 99.0 04/22/18 16:00 98.2 100 18 127/54 (78) 98 98.2 04/22/18 12:00 98.2 71 16 143/80 (101) 99 98.2 Intake and Output 04/22/18 04/23/18 19:00 07:00 Intake Total 450 ml 535 ml Balance 450 ml 535 ml Intake Oral 450 ml 480 ml IV Total 55 ml # Voids 3 3 Laboratory Tests 04/23/18 05:20: White Blood Count 13.3H, Red Blood Count 4.32, Hemoglobin 12.8, Hematocrit 38.1 , Mean Corpuscular Volume 88, Mean Corpuscular Hemoglobin 29.5, Mean Corpuscular Hemoglobin Concent 33.5, Red Cell Distribution Width 12.1, Platelet Count 322, Mean Platelet Volume 7.2, Neutrophils (%) (Auto) 74.3, Lymphocytes (% ) (Auto) 16.2L, Monocytes (%) (Auto) 7.3, Eosinophils (%) (Auto) 1.5, Basophils (%) (Auto) 0.7 Current Medications Medications (Trade) Dose Ordered Sig/Daniela Route PRN Reason Start Time Stop Time Status Last Admin Dose Admin Acetaminophen (Tylenol) 500 mg Q4H PRN ORAL Mild Pain/Temp > 100.5 04/19/18 08:10 05/19/18 08:09 04/22/18 00:41 Cefepime HCl 2 gm/ Dextrose 55 ml @ 110 mls/hr Q12H IVPB 04/19/18 03:00 04/26/18 02:59 04/23/18 03:41 Dextrose (Dextrose 50%) 25 ml Q1H PRN IV Hypoglycemia 04/18/18 19:45 Dextrose (Dextrose 50%) 50 ml Q1H PRN IV Hypoglycemia 04/18/18 19:45 Diphenhydramine HCl (Benadryl) 25 mg Q6H PRN ORAL Itching/Pruritis 04/18/18 19:45 05/18/18 19:44 Enoxaparin Sodium (Lovenox) 40 mg Q24H SUBQ 04/18/18 20:45 05/18/18 20:44 04/22/18 20:21 Famotidine (Pepcid) 40 mg DAILY ORAL 04/19/18 09:00 05/19/18 08:59 04/22/18 08:38 Lorazepam (Ativan 2mg/ml 1ml) 1 mg Q8H PRN IV For Anxiety 04/18/18 19:45 04/25/18 19:44 Ondansetron HCl (Zofran) 4 mg Q6H PRN IVP Nausea & Vomiting 04/18/18 19:45 05/18/18 19:44 Noble Gaxiola MD Apr 23, 2018 08:52
--- NOTE | 2018-04-23 09:40 | Nephrology Progress Note ---
Assessment/Plan Assessment/Plan A/P 1) Sepsis- pyleonep/UTI - IV Abx per ID. Afebrile - plan on DC once cleared by ID 2) ADPKD- - polycystic liver as well - will need outpt follow up with GI and renal. Patient have her PCP refer - MRI/A head Neck negative 3) SOB with cough- per Pulm. Resolved 4) DVT Prophylaxsis with Lovenox Subjective Date patient seen: Apr 23, 2018 Time patient seen: 09:39 ROS Limited/Unobtainable: No Allergies: Coded Allergies: No Known Allergies (Verified , 05/10/11) Subjective Patient feeling better. No rigors today and patient afebrile Objective Last 24 Hour Vital Signs Date Time Temp Pulse Resp B/P (MAP) Pulse Ox O2 Delivery O2 Flow Rate FiO2 04/23/18 03:56 99.8 92 18 130/79 (96) 99 99.8 04/23/18 00:00 99.8 96 18 143/79 (100) 97 99.8 04/22/18 21:00 Room Air 04/22/18 20:00 99.0 98 19 137/72 (93) 99 99.0 04/22/18 16:00 98.2 100 18 127/54 (78) 98 98.2 04/22/18 12:00 98.2 71 16 143/80 (101) 99 98.2 Intake and Output 04/22/18 04/23/18 19:00 07:00 Intake Total 450 ml 535 ml Balance 450 ml 535 ml Intake Oral 450 ml 480 ml IV Total 55 ml # Voids 3 3 Laboratory Tests 04/23/18 05:20: White Blood Count 13.3H, Red Blood Count 4.32, Hemoglobin 12.8, Hematocrit 38.1 , Mean Corpuscular Volume 88, Mean Corpuscular Hemoglobin 29.5, Mean Corpuscular Hemoglobin Concent 33.5, Red Cell Distribution Width 12.1, Platelet Count 322, Mean Platelet Volume 7.2, Neutrophils (%) (Auto) 74.3, Lymphocytes (% ) (Auto) 16.2L, Monocytes (%) (Auto) 7.3, Eosinophils (%) (Auto) 1.5, Basophils (%) (Auto) 0.7 Height (Feet): 4 Height (Inches): 11.00 Weight (Pounds): 129 General Appearance: WD/WN, no apparent distress EENT: normal ENT inspection Neck: normal alignment, supple Cardiovascular: normal rate, regular rhythm Respiratory/Chest: lungs clear, normal breath sounds Abdomen: non tender, soft Edema: no edema noted Arm (L), no edema noted Arm (R), no edema noted Leg (L), no edema noted Leg (R), no edema noted Pedal (L), no edema noted Pedal (R), no edema noted Generalized Pete Villarreal MD Apr 23, 2018 09:40
--- NOTE | 2018-04-23 09:42 | Discharge Instructions ---
Discharge Instructions Discharge Instructions Services at Discharge: day care Diet: 2 GM sodium (low sodium) Resume Normal Activity?: Yes Activity: light activity Pneumonia Vaccine: vaccine not indicated Influenza Vaccine (Apr to Sep): vaccine not indicated Follow Up Orders Follow up PCP 1 week Follow up ID 1 week For Congestive Heart Failure Reminder Report to your physician any weight gain of 5 pounds or more in one week. Pete Villarreal MD Apr 23, 2018 09:42
[2018-04-23 12:00] VITALS: BP 131/54
--- NOTE | 2018-04-24 11:53 | Discharge Summary ---
Discharge Summary Discharge Summary _ DATE OF ADMISSION: 04/18/2018 DATE OF DISCHARGE: 04/23/2018 CONSULTANTS: Dr. Kaleigh Morales BRIEF HOSPITAL COURSE: Patient is a 47-year-old female, who presented to emergency room due to flank pain and fever. Symptoms started approximately 7-10 days prior to admission. She was seen at a clinic while at [place], and was prescribed antibiotics. She is on day 3 of ciprofloxacin, however, there has been no change in symptoms. Pain was 8/10. She was having fevers. No chest pain. No shortness of breath. She has medical history significant for polycystic kidney and liver disease. On evaluation at ED, she was noted to be febrile, temperature 102. Blood work showed marked leukocytosis. Creatinine was 1.2, BUN 11. Urinalysis with 1+ leukocyte esterase, 0-2 RBC, 0-2 WBC, negative nitrite and negative ketones. 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 Liver with innumerable hepatic cysts. There was moderate colonic stool burden. She was then admitted for sepsis, most likely secondary to underlying urinary tract infection. She was started empirically on cefepime pending culture results. Infectious disease specialist was consulted. Patient has chronic kidney disease, most likely secondary to polycystic kidney disease. She was placed on Lovenox for DVT prophylaxis. She complained of cough and shortness of breath. Seed Specialist was consulted. Venous duplex of the lower extremity was negative for acute DVT. Chest x-ray was reviewed and was stable. Urine culture did not isolate any growth. Blood culture grew coagulase- negative staph from one set, most likely contaminant. She complained of headache. Head MRI/ MRA of the brain was ordered. Results showed no evidence of intracranial cerebral vascular insufficiency. No evidence of vascular malformation. Essentially unremarkable exam. Patient was then cleared for discharge home to continue cefdinir to finish total of 2 weeks course of treatment. FINAL DIAGNOSES: Sepsis Pyelonephritis/UTI Polycystic any disease Polycystic liver disease Headache Shortness of breath DISPOSITION: Patient was discharged home. DISCHARGE MEDICATIONS: Refer to Discharge Medication List. Prescription was given to patient. DISCHARGE INSTRUCTIONS: Follow up with PCP in a week. I have been assigned to dictate discharge summary on this account, and I was not involved in the patient's management. Cheyenne Dozier NP Apr 24, 2018 11:53
--- NOTE | 2018-04-28 15:14 | Diagnostic Imaging Report ---
APPROVED REPORT CPT Code: 98917 Present Symptoms Comments: Screening BILATERAL: Imaging reveals a patent deep venous system bilaterally. There is no evidence of thrombus within the femoral, popliteal or tibial segments. The greater saphenous veins are also within normal limits. Doppler indicates normal spontaneous flow within these segments.
== END 2018-04-23 14:40 | disposition home or self-care (01) | DRG 720 ==
LOC: EMR 16:35 → 4E 19:13 → EDBEDREQ 20:03
DX: A41.9 Sepsis, unspecified organism (principal); Q44.6 Cystic disease of liver; Q61.3 Polycystic kidney, unspecified; N10 Acute pyelonephritis; N39.0 Urinary tract infection, site not specified; R51 Headache; R06.02 Shortness of breath
CPT/HCPCS: 36415; 70544; 71045; 74177; 80048; 80053; 80307; 81003; 81025; 83605; 84484; 85007; 85025; 87040; 87086; 87181; 93970; 96361; 96365; 96375; 99285